=== PATIENT | female | born 1965 | race Caucasian/White ===

== ENCOUNTER 2019-11-26 18:55 | Emergency (ER) | payer MEDICARE, MEDICAID, SELFPAY ==
[2019-11-26 19:01] VITALS: BP 110/62; PULSE 77; RESP 20; TEMP 36.6; O2SAT 99
--- NOTE | 2019-11-26 19:19 | ED.URI ---
HPI - URI/Sore Throat General Chief Complaint: Upper Respiratory Infection Stated Complaint: cough/cold Time Seen by Provider: 11/26/19 19:15 Source: patient and RN notes reviewed Mode of arrival: ambulatory Limitations: no limitations History of Present Illness HPI Narrative: Patient presents today with a 4-day history of sore throat, nasal congestion, postnasal drip, bilateral ear pain, frontal headache, hoarseness. Symptoms have been worsening since onset. Denies cough. She has been taking Tylenol Cold with mild relief. MD elicited complaint: sore throat and nasal congestion Related Data Home Medications Medication Instructions Recorded Confirmed clonazepam [Klonopin] 0.5 mg PO TID 11/26/19 11/26/19 clonazepam [Klonopin] 1 mg PO DAILY 11/26/19 11/26/19 lamotrigine [Lamictal] 100 mg PO DAILY 11/26/19 11/26/19 lamotrigine [Lamictal] 200 mg PO HS 11/26/19 11/26/19 venlafaxine [Effexor XR] 300 mg PO DAILY 11/26/19 11/26/19 Allergies Allergy/AdvReac Type Severity Reaction Status Date / Time Sulfa (Sulfonamide Allergy Mild Hives Verified 11/26/19 19:09 Antibiotics) paroxetine [From Paxil] Allergy Diarrhea Verified 11/26/19 19:09 ziprasidone [From Geodon] Allergy Hypertensio Verified 11/26/19 19:10 n Review of Systems Review of Systems: Narrative: CONSTITUTIONAL: Denies body aches, fever, chills, or sweats. EYES: Denies visual changes, redness, or discharge. ENT: + Rhinorrhea, congestion, sore throat, bilateral ear pain, hoarseness, postnasal drip CARDIOVASCULAR: Denies chest pain, palpitations, or edema. RESPIRATORY: Denies cough or dyspnea. GASTROINTESTINAL: Denies abdominal pain, nausea, vomiting, or diarrhea. GENITOURINARY: Denies dysuria or hematuria. SKIN: Denies rash, itching, or wounds. MUSCULOSKELETAL: Denies back pain, joint pain, or myalgia. NEUROLOGIC: Denies numbness, tingling, or weakness.+ Headache PSYCH: Denies depression or anxiety. PMFSH Comments At time of signature, I have reviewed and agree with nursing past medical, surgical, social and family history unless otherwise noted. Please see nursing chart for further information. There is no relevant family history pertinent to the presenting complaint Exam Narrative: Exam Narrative: GENERAL: Mildly ill-appearing, well-nourished, and in no acute distress. HEAD: Normocephalic, atraumatic. EYES: EOMI. No redness or drainage. Conjunctivae normal. ENT: Mucous membranes pink and moist. Nares clear. No rhinorrhea. TMs normal bilaterally. Throat mildly erythematous without edema or exudate. Uvula midline. Voice is hoarse NECK: Normal AROM. Supple. Left anterior cervical chain lymphadenopathy. CHEST: No respiratory distress. Clear to auscultation. HEART: Regular rate and rhythm. No murmur appreciated. Normal peripheral pulses. EXTREMITIES: Normal range of motion. No edema. SKIN: Warm, dry, no rash. NEURO: No focal deficits. Alert and oriented x3. Gait steady. PSYCH: Normal affect. No signs of depression or anxiety. Course Vital Signs Vital signs: Vital Signs Temperature 97.8 F 11/26/19 19:01 Pulse Rate 77 11/26/19 19:01 Respiratory Rate 20 11/26/19 19:01 Blood Pressure 110/62 11/26/19 19:01 Pulse Oximetry 99 11/26/19 19:01 Temperature 97.8 F 11/26/19 19:01 Pulse Rate 77 11/26/19 19:01 Respiratory Rate 20 11/26/19 19:01 Blood Pressure 110/62 11/26/19 19:01 Pulse Oximetry 99 11/26/19 19:01 Reviewed MDM - URI/Sore Throat Differential Diagnosis Differential diagnosis: Likely upper respiratory infection, otitis media, sinusitis, viral infection, pharyngitis and other (Strep throat) Lab Data Attestation: I reviewed the patient's lab results. Lab results narrative: Rapid strep negative Labs: Strep Screen Presumptive Negative *(Reference Range: Negative)* Critical Care Time Critical Care Time Critical Care Time: No Discharge Plan Discharge Clinical Impressi
== END 2019-11-26 19:26 | disposition home or self-care (01) ==
PROVIDERS: Emergency Provider Nurse Practitioner
DX: J06.9 Acute upper respiratory infection, unspecified (principal); F41.9 Anxiety disorder, unspecified
CPT/HCPCS: 87081; 87880; 99213; G0463

== ENCOUNTER 2020-05-14 14:27 | Outpatient (CLI) | payer MEDICARE, MEDICAID, SELFPAY ==
--- NOTE | ~2020-05-14 | CT_ITS ---
EXAMINATION: CT chest w con DATE: 05/14/2020 15:35 INDICATION: Abnormal finding on recent x-ray. Evaluate for pulmonary mass. TECHNIQUE: Computed tomography (CT) of the chest was performed with 75 cc Omnipaque 350 intravenous c ontrast. The dose-length product was 164.32 mGy-cm. Automated exposure control and iterative reconstr uction technique were employed. COMPARISON: Chest x-ray dated 03/15/2006 and left rib series dated 01/28/2009 FINDINGS: Heart size normal. No thoracic lymphadenopathy. No significant pleural or pericardial effus ion. Thyroid gland is unremarkable. No significant vascular abnormality. No evidence for aneurysm or dissection. Gallbladder is distended, nonspecific. There is dependent atelectasis. No pneumothorax. N o endobronchial lesions. No focal parenchymal airspace consolidation. Mild dextrocurvature of the tho racic spine. No suspicious pulmonary nodules or masses. No acute bone or joint abnormality. Spinal watson rdware partially visualized lower cervical spine. There is a bone island of T9. IMPRESSION: 1. Unremarkable CT chest. Reviewed, dictated and finalized at location A. IMPRESSION: 1. Unremarkable CT chest.
== END 2020-05-14 14:28 | disposition home or self-care (01) ==
LOC: ANHIMG 14:30
PROVIDERS: PCP Family Medicine; Visit Provider Family Medicine
DX: R93.89 Abnormal findings on diagnostic imaging of other specified body structures (principal)
CPT/HCPCS: 71260; Q9967

== ENCOUNTER → 2020-06-01 12:54 | Outpatient (CLI) | payer MEDICARE, MEDICAID, SELFPAY ==
--- NOTE | ~2020-06-01 | CT_ITS ---
EXAMINATION: CT sinus wo con DATE: 06/01/2020 13:15 INDICATION: Chronic sinusitis TECHNIQUE: Computed tomography (CT) of the paranasal sinuses was performed without intravenous contra st. The dose-length product was 308.32 mGy-cm. Iterative reconstruction technique was employed. COMPARISON: CT dated 03/22/2008 FINDINGS: There is mucosal thickening of the maxillary sinuses. No significant mucoperiosteal reactio n. No air-fluid levels. There is a left-sided brine bullosa. Rightward nasal septal deviation. Ostio meatal units are patent. Mastoids are pneumatized. IMPRESSION: 1. Mild maxillary sinusitis. Reviewed, dictated and finalized at location B.
== END ==
PROVIDERS: PCP Family Medicine; Visit Provider Otolaryngology
DX: J32.0 Chronic maxillary sinusitis (principal)
CPT/HCPCS: 70486

== ENCOUNTER 2021-01-21 14:29 | Emergency (ER) | payer MEDICARE, MEDICAID, SELFPAY ==
[2021-01-21 14:38] VITALS: BP 104/71; PULSE 102; RESP 12; TEMP 37.1; O2SAT 99
--- NOTE | 2021-01-21 15:13 | ED.PEDHENT ---
HPI - Pediatric HENT General Chief complaint: Ear Stated complaint: THROAT PAIN, EAR PAIN Source: patient and RN notes reviewed Limitations: no limitations History of Present Illness HPI Narrative: The patient, who has a history of anxiety on several psychiatric meds, presents with sore throat. Patient states she had the quick onset while eating overcooked, scaly fish of sore throat last night. She thought she might have a foreign body or small bone, but symptoms improved this morning. She reports she looked at the back of her throat and thought she saw uvular edema and/or [bloody?] redness. Symptoms are mild to have improved, radiate to her ears. No fever, hoarseness, trismus, FB sensation now; she specifically & repeatedly declines imaging. Related Data Home Medications Medication Instructions Recorded Confirmed clonazepam [Klonopin] 0.5 mg PO TID 11/26/19 01/21/21 clonazepam [Klonopin] 1 mg PO DAILY 11/26/19 01/21/21 lamotrigine [Lamictal] 100 mg PO DAILY 11/26/19 01/21/21 lamotrigine [Lamictal] 200 mg PO HS 11/26/19 01/21/21 venlafaxine [Effexor XR] 300 mg PO DAILY 11/26/19 01/21/21 Allergies Allergy/AdvReac Type Severity Reaction Status Date / Time Sulfa (Sulfonamide Allergy Mild Hives Verified 01/21/21 14:38 Antibiotics) paroxetine [From Paxil] Allergy Diarrhea Verified 01/21/21 14:38 ziprasidone [From Geodon] Allergy Hypertensio Verified 01/21/21 14:38 n Pediatric Review of Systems Review of Systems: General/Constitutional: No weight loss,fever Eyes: N0: Redness,discharge Ears/Nose/Throat: No: Epistaxis,ear discharge Respiratory: Denies: Hemoptysis Gastrointestinal: No Vomiting, Bleeding-rectal Skin: No Lumps, eruption Neurologic: No Focal Weakness,Sz Hematologic: Denies: Petechiae/Purpura Psychiatric: No: Suicida ideationl All Other Systems: Reviewed and Negative PMFSH Comments At time of signature, agree with nursing past medical, surgical, social and family history. There is no relevant family history pertinent to the presenting complaint Pediatric Exam Narrative: Physical exam: General Appearance: Well appearing, Well nourished EYE: PERRLA, Conjunctiva clear Ears: Auditory canal normal, TM normal Nose: no rhinorrhea, nor mucousal erythema Mouth/Throat: MM moist, Uvula midline, Pharyngeal erythema Neck: Supple, No adenopathy Respiratory: No respiratory distress, Breath sounds equal, Clear to auscultation Musculoskeletal: Non tender, Normal strength Skin: Warm, Dry Neurological: A&O x3, CN II-XII intact Psy : nl mood Course Vital Signs Vital signs: Vital Signs Temperature 98.7 F 01/21/21 14:38 Pulse Rate 102 H 01/21/21 14:38 Respiratory Rate 12 01/21/21 14:38 Blood Pressure 104/71 01/21/21 14:38 Pulse Oximetry 99 01/21/21 14:38 Temperature 98.7 F 01/21/21 14:38 Pulse Rate 102 H 01/21/21 14:38 Respiratory Rate 12 01/21/21 14:38 Blood Pressure 104/71 01/21/21 14:38 Pulse Oximetry 99 01/21/21 14:38 Medical Decision Making Vital Signs Vital Signs: Vital Signs Temperature 98.7 F 01/21/21 14:38 Pulse Rate 102 H 01/21/21 14:38 Respiratory Rate 12 01/21/21 14:38 Blood Pressure 104/71 01/21/21 14:38 Pulse Oximetry 99 01/21/21 14:38 Temperature 98.7 F 01/21/21 14:38 Pulse Rate 102 H 01/21/21 14:38 Respiratory Rate 12 01/21/21 14:38 Blood Pressure 104/71 01/21/21 14:38 Pulse Oximetry 99 01/21/21 14:38 Lab Data Labs: Strep Screen Presumptive Negative *(Reference Range: Negative)* Discharge Plan Discharge Clinical Impression: Odynophagia, Globus sensation Patient Disposition: Home, Self-Care Condition: Stable Instructions: Esophageal Foreign Body (ED) Additional Instructions: Return if worsens Prescriptions: New azithromycin 250 mg tablet See Rx Instructions .ROUTE .COMPLEX Qty: 6 RF: 0 lidocaine HCl
== END 2021-01-21 15:18 | disposition home or self-care (01) ==
PROVIDERS: Emergency Provider Emergency Medicine; PCP Family Medicine
DX: F45.8 Other somatoform disorders (principal); F41.9 Anxiety disorder, unspecified
CPT/HCPCS: 87081; 87880; 99213; G0463

== ENCOUNTER 2023-03-27 18:54 | Emergency (ER) | payer MEDICARE, MEDICAID, SELFPAY ==
[2023-03-27] VITALS (20 sets, daily range): BP systolic 105–121; BP diastolic 63–82; PULSE 67–106; RESP 9–23; TEMP 36.6; O2SAT 97–100
--- NOTE | ~2023-03-27 | XR_ITS ---
EXAMINATION: XR chest 1V portable DATE: 03/27/2023 20:43 INDICATION: Near syncope. Anxiety. TECHNIQUE: A single frontal view of the chest was obtained. COMPARISON: Chest single view 01/28/2009 FINDINGS: The chest demonstrates clear lungs without pneumonia, pleural effusion, or pneumothorax. Th e heart size is normal. There are changes of anterior fusion procedure in cervical spine. IMPRESSION: 1. No acute cardiopulmonary disease. Reviewed, dictated and finalized at location E.
--- NOTE | 2023-03-27 19:07 | ECG_ITS ---
Measurements Intervals Viola Rate: 91 P: 26 ID: 150 QRS: -4 QRSD: 91 T: 42 QT: 364 QTc: 449 Interpretive Statements SINUS RHYTHM DELAYED PRECORDIAL R/S TRANSITION BORDERLINE T WAVE ABNORMALITY- ANTERIOR LEADS BORDERLINE ECG NO PREVIOUS ECG AVAILABLE FOR COMPARISON Electronically Signed On 03-27-2023 21:10:31 CDT by Raj Mitchell D.O.
[2023-03-27 19:18] LABS: Basophils Absolute Auto 0.1 K/mm3 (0.0-0.1); Basophils Percent Auto 1.3 % (0.2-1.2); Eosinophils Absolute Auto 0.4 K/mm3 (0-0.3); Eosinophils Percent Auto 7.6 % (0-4.4); Hematocrit 42.6 % (37.0-47.0); Immature Granulocyte Absolute 0.01 K/mm3 (0.00-0.031); Immature Granulocyte Percent A 0.2 % (0-0.5); Lymphocytes Absolute Auto 1.35 K/mm3 (0.9-3.2); Lymphocytes Percent Auto 24.3 % (18.3-44.2); Mean Corpuscular HGB Conc 32.9 g/dl (32-36); Mean Corpuscular Hemoglobin 29.8 pg (26-34); Mean Corpuscular Volume 90.6 fl (80-100); Mean Platelet Volume 9.5 fl (7.4-10.4); Monocytes Absolute Auto 0.4 K/mm3 (0.1-0.6); Neutrophils Absolute Auto 3.3 K/mm3 (1.3-6.7); Neutrophils Percent Auto 59.6 % (45.5-73.1); Platelet Count Result 284 k/mm3 (150-375); Red Cell Distribution Width 12.8 % (11.5-14.5); White Blood Count 5.6 K/mm3 (4.5-10.0)
[2023-03-27 20:03] LABS: Alanine Aminotransferase 28 U/L (6-35); Albumin Level 4.4 g/dL (3.5-5.1); Alkaline Phosphatase 87 U/L (38-126); Anion Gap 4 mmol/L (8-16); Aspartate Amino Transferase 28 U/L (14-36); Bilirubin,Total 0.4 mg/dL (0.2-1.3); Blood Urea Nitrogen 14 mg/dL (7-17); Calcium 9.4 mg/dL (8.4-10.2); Carbon Dioxide 29 mmol/L (22-30); Chloride 103 mmol/L (98-107); Estimated Glomerular Filt Rate > 60; Glucose 92 mg/dL (65-110); Sodium 136 mmol/L (137-145)
--- NOTE | 2023-03-27 20:18 | ED.ANXIETY ---
HPI - Anxiety General Chief Complaint: Anxiety Stated Complaint: anxiety induced syncope Time Seen by Provider: 03/27/23 19:04 History of Present Illness HPI narrative: Patient is a 57-year-old female with a history of panic disorder, anxiety, depression presenting with a panic attack. Patient states that she has been seeing a new psychiatrist who has been tinkering with her psychiatric medications. She is concerned that they are decreasing all of her medications. States that she has had worsening anxiety and more frequent panic attacks. States that today around 5 PM she began having a panic attack. States that she feels tingly all over. States that she took a Klonopin which only helped a little bit. She denies fevers or chills, chest pain, shortness of breath, abdominal pain, leg swelling, vomiting, diarrhea, dysuria. Related Data Home Medications Medication Instructions Recorded Confirmed clonazepam 0.5 mg tablet (Klonopin) 0.5 mg PO TID 11/26/19 01/21/21 clonazepam 1 mg tablet (Klonopin) 1 mg PO DAILY 11/26/19 01/21/21 lamotrigine 100 mg tablet 100 mg PO DAILY 11/26/19 01/21/21 (Lamictal) lamotrigine 200 mg tablet 200 mg PO HS 11/26/19 01/21/21 (Lamictal) venlafaxine 150 mg 300 mg PO DAILY 11/26/19 01/21/21 capsule,extended release 24 hr (Effexor XR) Allergies Allergy/AdvReac Type Severity Reaction Status Date / Time Sulfa (Sulfonamide Allergy Mild Hives Verified 01/21/21 14:38 Antibiotics) paroxetine [From Paxil] Allergy Diarrhea Verified 01/21/21 14:38 ziprasidone [From Geodon] Allergy Hypertensio Verified 01/21/21 14:38 n Review of Systems Review of Systems: All systems reviewed & are unremarkable except as noted in HPI and below Exam Narrative: GENERAL: Well-appearing, well-nourished, and in no acute distress. HEAD: Normocephalic, atraumatic. EYES: PERRLA and EOMI. ENT: Nares clear, no rhinorrhea or epistaxis. Mucous membranes moist. NECK: Supple. CHEST: Clear to auscultation. No respiratory distress. HEART: Regular rate and rhythm. No murmur heard. Normal peripheral pulses. ABDOMEN: Soft, nontender, nondistended EXTREMITIES: Normal range of motion. No edema. SKIN: Warm, dry, no rash. NEURO: No focal deficits. Alert and oriented x3. PSYCH: Anxious Course Vital Signs Vital signs: Vital Signs Temperature 97.9 F 03/27/23 18:55 Pulse Rate 106 H 03/27/23 18:55 Respiratory Rate 13 03/27/23 18:55 Blood Pressure 121/82 03/27/23 18:55 Pulse Oximetry 100 03/27/23 18:55 Oxygen Delivery Room Air 03/27/23 18:55 Temperature 97.9 F 03/27/23 18:55 Pulse Rate 71 03/27/23 21:31 Respiratory Rate 16 03/27/23 21:31 Blood Pressure 107/68 03/27/23 21:31 Pulse Oximetry 100 03/27/23 21:31 Oxygen Delivery Room Air 03/27/23 18:55 MDM - Anxiety MDM Narrative Medical decision making narrative: Patient is a 57-year-old female presenting with a panic attack. Vitals are reassuring. She was initially fully slightly tachycardic but this resolved for the time I evaluated her. Plan for blood work, fluids, one-time dose of Ativan. Anticipate likely discharge. EKG per my interpretation shows normal sinus rhythm, normal intervals, no acute ischemic changes. Blood work is normal. Troponin undetectable. On reevaluation, the patient states that she feels significantly improved following the Ativan and fluids. She feels comfortable going home which I think is appropriate. Advised close f/u with PCP and her psychiatrist. Appropriate return precautions given. Voiced understanding and agreeable with plan. Discharged in stable condition. Differential Diagnosis Differential diagnosis: Likely hyperventilation, panic disorder and acute anxiety Medical Records Attestation: I reviewed the patient's medical records. Lab Data Attestation: I reviewed the patient's lab results. 03/27/23 19:09 03/27/23 19:46 Labs: Lab Results 03/18
[2023-03-27] MEDS: LORazepam INJ (*CRX) 2 MG/ML VIAL 1 MG IV PUSH (20:24)
[2023-03-27] MEDS: SODIUM CHLORIDE 0.9% IV 1,000 ML 999 ML IV CONT (20:25)
[2023-03-27 20:56] LABS: Troponin I < 0.012 ng/mL (0.000-0.034)
[2023-03-27] MEDS: ACETAMINOPHEN 500 MG TABLET 1000 MG PO (21:55)
== END 2023-03-27 22:05 | disposition home or self-care (01) ==
PROVIDERS: Emergency Provider Emergency Medicine; PCP Family Medicine
DX: F41.0 Panic disorder [episodic paroxysmal anxiety] (principal); R94.31 Abnormal electrocardiogram [ECG] [EKG]
CPT/HCPCS: 36415; 71045; 80053; 81025; 84484; 85025; 93005; 96361; 96374; 99284; A9270; J2060; J7030

== ENCOUNTER 2023-10-17 16:32 | Emergency (ER) | payer MEDICARE, MEDICAID, SELFPAY ==
[2023-10-17 16:42] VITALS: BP 123/79; PULSE 80; RESP 16; TEMP 36.8; O2SAT 98
[2023-10-17] MEDS: LORazepam INJ (*CRX) 2 MG/ML VIAL IM (17:00)
[2023-10-17 17:01] VITALS: BP 123/79; PULSE 91; RESP 16; O2SAT 100
[2023-10-17 17:12] LABS: Basophils Percent Auto 0.7 % (0.2-1.2); Eosinophils Absolute Auto 0.4 K/mm3 (0-0.3); Eosinophils Percent Auto 6.9 % (0-4.4); Hematocrit 46.1 % (37.0-47.0); Immature Granulocyte Absolute 0.01 K/mm3 (0.00-0.031); Immature Granulocyte Percent A 0.2 % (0-0.5); Lymphocytes Absolute Auto 1.26 K/mm3 (0.9-3.2); Lymphocytes Percent Auto 21.8 % (18.3-44.2); Mean Corpuscular HGB Conc 32.5 g/dl (32-36); Mean Corpuscular Hemoglobin 29.3 pg (26-34); Monocytes Absolute Auto 0.3 K/mm3 (0.1-0.6); Monocytes Percent Auto 5.5 % (2.6-8.5); Neutrophils Absolute Auto 3.8 K/mm3 (1.3-6.7); Neutrophils Percent Auto 64.9 % (45.5-73.1); Platelet Count Result 298 k/mm3 (150-375); Red Blood Count 5.12 M/mm3 (4.2-5.4); Red Cell Distribution Width 12.2 % (11.5-14.5); White Blood Count 5.8 K/mm3 (4.5-10.0)
--- NOTE | 2023-10-17 17:15 | PC.NURSE ---
Tech informed pt of need in [facility]. Pt asked for more time to relax
[2023-10-17 17:27] LABS: Alanine Aminotransferase 16 U/L (6-35); Albumin Level 4.8 g/dL (3.5-5.1); Alkaline Phosphatase 91 U/L (38-126); Anion Gap 8 mmol/L (8-16); Aspartate Amino Transferase 23 U/L (14-36); Bilirubin,Total 0.4 mg/dL (0.2-1.3); Blood Urea Nitrogen 16 mg/dL (7-17); Calcium 9.9 mg/dL (8.4-10.2); Carbon Dioxide 28 mmol/L (22-30); Chloride 102 mmol/L (98-107); Estimated Glomerular Filt Rate > 60; Glucose 94 mg/dL (65-110); Magnesium 2.2 mg/dL (1.6-2.3); Sodium 138 mmol/L (137-145)
[2023-10-17 17:28] LABS: Acetaminophen < 10 ug/mL (10-30); Ethanol < 10 mg/dL (<10); Salicylate < 1.0 mg/dL (2-20)
[2023-10-17 17:48] LABS: Influenza A QL RT-PCR Negative (Negative); Influenza B QL RT-PCR Negative (Negative); RSV RNA, RT-PCR Negative (Negative); SARS-CoV-2 RNA PCR Negative (Negative)
[2023-10-17] MEDS: clonazePAM (*CRX) 0.5 MG TABLET 1 MG PO (18:11)
[2023-10-17 18:12] VITALS: BP 99/61; PULSE 84; RESP 14; O2SAT 100
--- NOTE | 2023-10-17 18:23 | ED.ANXIETY ---
HPI - Anxiety General Chief Complaint: Anxiety Stated Complaint: Anxiety Time Seen by Provider: 10/17/23 16:59 History of Present Illness HPI narrative: 58-year-old female presenting ED for evaluation for Klonopin withdrawal. Patient states that her psychiatrist has been decreasing her Klonopin. Patient states that she ran out of her Klonopin on Monday and has had worsening anxiety and agitation. Patient states that she did feel confused as well. Patient attempted to have a phone evaluation with her psychiatrist today but was unable to do so. Patient presented to the emergency department complaining of increased anxiety. Patient denies any homicidal or suicidal ideation. Patient does not have a refill on her Klonopin until October 21 Related Data Home Medications Medication Instructions Recorded Confirmed clonazepam 0.5 mg tablet (Klonopin) 0.5 mg PO TID 11/26/19 01/21/21 clonazepam 1 mg tablet (Klonopin) 1 mg PO DAILY 11/26/19 01/21/21 lamotrigine 100 mg tablet 100 mg PO DAILY 11/26/19 01/21/21 (Lamictal) lamotrigine 200 mg tablet 200 mg PO HS 11/26/19 01/21/21 (Lamictal) venlafaxine 150 mg 300 mg PO DAILY 11/26/19 01/21/21 capsule,extended release 24 hr (Effexor XR) Allergies Allergy/AdvReac Type Severity Reaction Status Date / Time Sulfa (Sulfonamide Allergy Mild Hives Verified 10/17/23 18:13 Antibiotics) paroxetine [From Paxil] Allergy Diarrhea Verified 10/17/23 18:13 ziprasidone [From Geodon] Allergy Hypertensio Verified 10/17/23 18:13 n Review of Systems Review of Systems: All systems reviewed & are unremarkable except as noted in HPI and below PMFSH Social History Social History Substance use type: prescription drug Exam Narrative: APPEARANCE: Well appearing, no pain, no distress, well-nourished. HEAD: normocephalic, atraumatic. EYES: PERRLA/EOMI, conjunctivae clear. NOSE: Normal no drainage EARS:TMS clear with good light reflex. THROAT: Pharynx clear, no exudate. NECK: Supple. No adenopathy, no masses. RESPIRATORY: Airway patent, respirations nonlabored. Clear to auscultation bilaterally, no rales, rhonchi, wheezing. CARDIOVASCULAR: Regular rate and rhythm without murmurs rubs or gallops. ABDOMINAL: Soft, nontender, nondistended, normal bowel sounds MUSCULOSKELETAL: Moves all extremities. Strength/ROM intact, No edema, No calf tenderness. NEURO: Alert. Cranial nerves II through XII intact. Grossly intact SKIN: Warm, dry. Normal Color PSYCHIATRIC: Anxious affect Course Course Emergency Course: 58-year-old female presenting the ED for evaluation for Klonopin withdrawal. Patient does have a Klonopin prescription early October. After treating her with benzos in the emergency department patient is alert oriented and prefers to be discharged home. Patient is not confused, patient is not hallucinating and patient continues to deny any suicidal homicidal ideation. Patient was given a prescription 10 x 0.5 mg Klonopin. Patient does have a psychiatrist that she will be following up with. Vital Signs Vital signs: Vital Signs Temperature 98.2 F 10/17/23 16:42 Pulse Rate 80 10/17/23 16:42 Respiratory Rate 16 10/17/23 16:42 Blood Pressure 123/79 10/17/23 16:42 Pulse Oximetry 98 10/17/23 16:42 Temperature 97.7 F 10/17/23 19:20 Pulse Rate 81 10/17/23 19:20 Respiratory Rate 18 10/17/23 19:20 Blood Pressure 105/84 10/17/23 19:20 Pulse Oximetry 100 10/17/23 19:20 MDM - Anxiety Lab Data 10/17/23 17:05 10/17/23 17:05 Labs: Lab Results 10/17/23 10/17/23 10/17/23 Range/Units 17:05 17:05 17:05 WBC 5.8 (4.5-10.0) K/mm3 RBC 5.12 (4.2-5.4) M/mm3 Hgb 15.0 (12.0-15.0) g/dL Hct 46.1 (37.0-47.0) % MCV 90.0 (80-100) fl MCH 29.3 (26-34) pg MCHC 32.5 (32-36) g/dl RDW 12.2 (11.5-14.5) % Plt Count 298
[2023-10-17 18:52] LABS: Appearance Urine Clear (Clear); Bacteria Urine Rare /hpf; Bilirubin Urine Negative (Negative); Blood Urine Negative (Negative); Color Urine Yellow (Yellow); Glucose Urine UA Negative (Negative); Ketones Urine Negative (Negative); Leukocyte Esterase Ur 1+ LEU/UL (Negative); Nitrate Urine Negative (Negative); Non Pathogenic Casts 0-2; Protein Urine Negative (Negative); RBC Urine 0-2 /hpf (0-2); Specific Grav Ur 1.015 (1.001-1.035); Squamous Epithelial Cell Urine Few /hpf (Few); Urobilinogen Urine 0.2 mg/dL (<2.0)
[2023-10-17 18:54] LABS: Add Urine Microscopic? YES
[2023-10-17 19:14] LABS: Amphetamine Screen Urine Negative (Negative); Barbiturate Screen Urine Negative (Negative); Benzodiazepines Screen Urine Negative (Negative); Cannabinoid Screen Urine Negative (Negative); Cocaine Screen Urine Negative (Negative); Methadone Screen Urine Negative (Negative); Opiate Screen Urine Negative (Negative); Phencyclidine Screen Urine Negative (Negative)
[2023-10-17 19:20] VITALS: BP 105/84; PULSE 81; RESP 18; TEMP 36.5; O2SAT 100
--- NOTE | 2023-10-17 19:21 | PC.NURSE ---
This RN called pt son at 1914 to update and make aware pt is being DC. pt son verbalized he is coming to pick patient up
== END 2023-10-17 19:22 | disposition home or self-care (01) ==
LOC: ANHED 18:38
PROVIDERS: Emergency Provider Emergency Medicine; PCP Nurse Practitioner Adult Health
DX: F13.139 Sedative, hypnotic or anxiolytic abuse with withdrawal, unspecified (principal); Z20.822 Contact with and (suspected) exposure to COVID-19; R82.998 Other abnormal findings in urine; Z79.899 Other long term (current) drug therapy
CPT/HCPCS: 36415; 80053; 80307; 81001; 81025; 83735; 84443; 85025; 87086; 87637; 96372; 99283; A9270; J2060

== ENCOUNTER 2023-11-23 15:44 | Outpatient (CLI) | payer MEDICARE, MEDICAID, SELFPAY ==
--- NOTE | ~2023-11-23 | XR_ITS ---
EXAMINATION: XR sinus min 3V DATE: 11/23/2023 16:06 INDICATION: Other specified disorders of nose and nasal sinuses. TECHNIQUE: 5 views of the paranasal sinuses were obtained. COMPARISON: CT sinuses 06/01/2020 FINDINGS: Bone alignment is normal. There is mild mucosal thickening in the maxillary sinuses. There is thickening and sclerosis of the christian of the maxillary sinuses, consistent with chronic sinusitis. IMPRESSION: 1. Chronic sinusitis. Reviewed, dictated and finalized at location E. BER CUB IMPRESSION: 1. Chronic sinusitis.
[2023-11-23 19:29] LABS: Alanine Aminotransferase 24 U/L (6-35); Albumin Level 4.8 g/dL (3.5-5.1); Alkaline Phosphatase 90 U/L (38-126); Anion Gap 8 mmol/L (8-16); Aspartate Amino Transferase 36 U/L (14-36); Bilirubin,Total 0.4 mg/dL (0.2-1.3); Blood Urea Nitrogen 14 mg/dL (7-17); Calcium 10.2 mg/dL (8.4-10.2); Carbon Dioxide 29 mmol/L (22-30); Chloride 101 mmol/L (98-107); Estimated Glomerular Filt Rate > 60; Glucose 94 mg/dL (65-110); Potassium 4.1 mmol/L (3.4-5.0); Sodium 138 mmol/L (137-145)
[2023-11-23 19:39] LABS: Hematocrit 46.1 % (37.0-47.0); Hemoglobin 14.7 g/dL (12.0-15.0); Mean Corpuscular HGB Conc 31.9 g/dl (32-36); Mean Corpuscular Hemoglobin 29.2 pg (26-34); Mean Corpuscular Volume 91.7 fl (80-100); Mean Platelet Volume 9.3 fl (7.4-10.4); Platelet Count Result 371 k/mm3 (150-375); Red Blood Count 5.03 M/mm3 (4.2-5.4); Red Cell Distribution Width 12.6 % (11.5-14.5)
[2023-11-23 20:46] LABS: Folic Acid 5.5 ng/mL (2.76->20)
== END 2023-11-23 15:45 | disposition home or self-care (01) ==
PROVIDERS: PCP Nurse Practitioner Adult Health; Visit Provider Nurse Practitioner Adult Health
DX: F39 Unspecified mood [affective] disorder (principal); F41.9 Anxiety disorder, unspecified; F33.9 Major depressive disorder, recurrent, unspecified; J34.89 Other specified disorders of nose and nasal sinuses; J32.9 Chronic sinusitis, unspecified
CPT/HCPCS: 36415; 70220; 80053; 82607; 82746; 84443; 85027

== ENCOUNTER 2024-04-09 15:08 | Outpatient (CLI) | payer MEDICARE, MEDICAID, SELFPAY ==
[2024-04-09 18:40] LABS: Basophils Absolute Auto 0.1 K/mm3 (0.0-0.1); Basophils Percent Auto 1.3 % (0.2-1.2); Eosinophils Absolute Auto 0.3 K/mm3 (0-0.3); Eosinophils Percent Auto 6.9 % (0-4.4); Hematocrit 46.2 % (37.0-47.0); Hemoglobin 14.8 g/dL (12.0-15.0); Immature Granulocyte Absolute 0.02 K/mm3 (0.00-0.031); Immature Granulocyte Percent A 0.4 % (0-0.5); Lymphocytes Absolute Auto 1.31 K/mm3 (0.9-3.2); Lymphocytes Percent Auto 28.1 % (18.3-44.2); Mean Corpuscular Hemoglobin 28.5 pg (26-34); Mean Platelet Volume 9.2 fl (7.4-10.4); Monocytes Absolute Auto 0.3 K/mm3 (0.1-0.6); Monocytes Percent Auto 6.9 % (2.6-8.5); Neutrophils Absolute Auto 2.6 K/mm3 (1.3-6.7); Neutrophils Percent Auto 56.4 % (45.5-73.1); Platelet Count Result 312 k/mm3 (150-375); Red Blood Count 5.19 M/mm3 (4.2-5.4); Red Cell Distribution Width 12.6 % (11.5-14.5); White Blood Count 4.7 K/mm3 (4.5-10.0)
[2024-04-09 19:21] LABS: Free T4 Free Thyroxine 0.95 ng/mL (0.78-2.19)
[2024-04-10 16:13] LABS: Progesterone <0.5 ng/mL
[2024-04-12 09:33] LABS: Thyroid Peroxidase Antibodies <1 IU/mL (<9)
[2024-04-13 15:53] LABS: Estrogen 36 pg/mL
[2024-04-13 22:13] LABS: Estradiol, Ultrasensitive 3 pg/mL
[2024-04-16 15:39] LABS: FSH 62.8 mIU/mL
== END 2024-04-09 15:09 | disposition home or self-care (01) ==
LOC: ANHBWCLAB 15:10
PROVIDERS: PCP Nurse Practitioner Adult Health; Visit Provider Nurse Practitioner Adult Health
DX: F39 Unspecified mood [affective] disorder (principal)
CPT/HCPCS: 36415; 82670; 82672; 83001; 83002; 84144; 84439; 84443; 85025; 86376

== ENCOUNTER 2025-01-01 14:14 | Outpatient (CLI) | payer MEDICARE, MEDICAID, SELFPAY ==
--- OUTSIDE RECORDS SUMMARY | 2025-01-01 15:29 | XMS_ITS | Clinical Summary ---
Author Organization [facility] Address [address] [place] [phone] Phone Care Team Providers Care Barrer And Tacker Name Role Phone Unavailable Primary Care Provider Unavailabl e Social History Tobacco Use Types Packs/Day Years Used Date Smoking Tobacco: Never Assessed Sex and Gender Information Value Date Recorded Sex Assigned at Not on file Legal Sex Male 11:28 AM CDT Gender Identity Not on file Sexual Orientation Not on file Plan of Treatment Health Maintenance Due Date Last Done Comments DTAP/TDAP/TD VACCINES (1 - Tdap) 1986 HEPATITIS B VACCINES (1 of 3 - 19+ 3-dose series) 1986 COLORECTAL SCREENING 2012 Colorectal Cancer Screening 2012 FIT-DNA Q 3 years 2012 FIT/FOBT Q 1 year 2012 Flex Sig/CT Colonography Q 5 years 2012 ZOSTER VACCINE (1 of 2) 2017 INFLUENZA VACCINE (#1) 2024 PNEUMOCOCCAL VACCINE 0-49 YEARS Aged Out No longer eligible based on patient's age to complete this topic Insurance MEDICARE PART A AND B
--- OUTSIDE RECORDS SUMMARY | 2025-01-01 15:29 | XMS_ITS | Clinical Summary ---
Author Organization [facility] Address [facility] [place] [address] Care Team Providers Care Print Inspector Name Role Phone Unavailable Primary Care Provider Unavailabl e Social History Tobacco Use Types Packs/Day Years Used Date Smoking Tobacco: Never Assessed Comments Unknown Sex and Gender Information Value Date Recorded Sex Assigned at Not on file Legal Sex Female 7:36 PM CDT Gender Identity Not on file Sexual Orientation Not on file Plan of Treatment Health Maintenance Due Date Last Done Comments Cervical Cancer Screening Pa p Smear (Age 30 to 64) Every 3 Years 1967 Colorectal Cancer Screening Colonoscopy (10 Years) 1967 Annual Physical 1970 Hepatitis C 1985 DTaP, Tdap and Td Vaccines ( 1 - Tdap) 1986 Hepatitis B Vaccines (1 of 3 - 19+ 3-dose series) 1986 Cervical Cancer Screening Pa p with HPV Testing (Age 30 to 64) Every 5 Years 1997 Cervical Cancer Screening with HPV 1997 Mammogram Screening 2007 Zoster Vaccines (1 of 2) 2017 COVID-19 Vaccine (2023-2 5 season) 2024 Meningococcal B Vaccine Aged Out No l onger eligible based on patient's age to complete this topic Meningococcal Vaccine Aged Out No brown alexys eligible based on patient's age to complete this topic Pneumococcal Vaccine: Pediat rics (0 to 5 Years) and At-Risk Patients (6 to 49 Years) Aged Out No longer eligible b ased on patient's age to complete this topic RSV Immunizations Under 20 Months Aged Out No longer eligible based on patient's age to complete this topic
--- OUTSIDE RECORDS SUMMARY | 2025-01-01 15:29 | XMS_ITS | Clinical Summary ---
Author Organization [facility] [employer] Address [address] [place] [address] Care Team Providers Care Cloth Bin Packer Name Role Phone Dameon Hloley MD Primary Care Provider [phone] Jordan Black DC Unavailable [phone] Source Comments [facility],non-owned Affiliates and Associated Physician Practices is amultiple site organization consisting of ambulatory clinics and hospital sitesin [place], [place] and [place]. This disclosure is being madepursuant to the Care Everywhere program and may not contain all information available regarding this patient. Last updated 18.[facility] Allergies Active Allergy Reactions Criticality Noted Date Comments Paroxetine 07/10/2013 Sulfa Drugs 07/10/2013 Medications * Be aware that medications may not be up to date on this document. Alwaysverify current medications with the patient. Venlafaxine HCl (EFFEXOR PO) once daily. Activ e LamoTRIgine (LAMICTAL PO) once daily. Acti ve ClonazePAM (KLONOPIN PO) as needed. Activ e piroxicam (FELDENE) 20 MG capsule Take 1 Cap by mouth once daily. 30 Cap 5 07/10/2013 Active Active Problems Problem Noted Date Diagnosed Date Spinal stenosis, lumbar tariq on, with neurogenic claudication 07/17/2013 Degeneration of lumbar or lumbosacral interverte bral disc 07/17/2013 Social History Tobacco Use Types Packs/Day Years Used Date Smoking Tobacco: Never Smokeless Tobacco: Never Alcohol Use Standard Drinks/Week Comments No 0 (1 standard drink = 0.6 oz pur e alcohol) Comments Unknown Sex and Gender Information Value Date Recorded Sex Assigned at Not on file Legal Sex Female 2:19 PM CDT Gender Identity Not on file Sexual Orientation Not on file Occupation Industry Job Start Date Job End Date DISABILITY Not on file Not on file Not on file Last Filed Vital Signs Vital Sign Reading Time Taken Comments Blood Pressure - - Pulse - - Temperature - - Respiratory Rate - - Oxygen Saturation - - Inhaled Oxygen Concentration - - Weight 90.7 kg (200 lb) 07/10/2013 11:17 AM CDT Height 182.9 cm (6') 07/10/2013 11:17 AM CDT Body Mass Index 27.12 07/10/2013 11:17 AM CDT Plan of Treatment Health Maintenance Due Date Last Done Comments COLOGUARD (AGES 45-75) - COL ON CA SCREENING 1967 COLON MONITORING 1967 COLONOSCOPY - COLON CA SCREENING 1967 CT COLONOGRAPHY - COLON CA SCREENING 1967 Colorectal Cancer Screening 1967 FIT - COLON CA SCREENING 1967 FLEX SIG - COLON CA SCREENING 1967 LIPID TESTING 1967 MAMMOGRAM 1967 HIV SCREENING 1982 HEPATITIS C SCREENING 04/29/1985 DTAP/TDAP/TD VACCINES (1 - Tdap) 1986 HEPATITIS B VACCINE (1 of 3 - 19+ 3-dose series) 1986 PNEUMOCOCCAL VACCINE 50+ (1 of 1 - PCV) 2017 ZOSTER VACCINE (1 of 2) 2017 COVID-19 VACCINE (1 - 2023-2 5 season) 2024 DEPRESSION SCREENING 09/18/2024 INFLUENZA VACCINE (Season Ended) 2025 HIB VACCINE Aged Out No longer eligi ble based on patient's age to complete this topic HPV VACCINE Aged Out No longer eligi ble based on patient's age to complete this topic MENINGOCOCCAL (Group B) VACC INE SHARED DECISION-MAKING Aged Out No longer eligibl e based on patient's age to complete this topic MENINGOCOCCAL GROUPS A/C/Y/W VACCINE Aged Out No longer eligible b ased on patient's age to complete this topic Insurance MEDICARE MEDICAID - [place] Care Teams Cloth Bin Packer Relationship Specialty Start Date End Date Dameon Holley MD [address] [place] [address] PCP - General Family Medicine 07/10/13 Jordan Black DC [address] [place] [address] Chiropractic 07/10/13
--- OUTSIDE RECORDS SUMMARY | 2025-01-01 15:29 | XMS_ITS | Continuity of Care Document ---
Author Organization [facility] Address [address] [place] [address] Phone Care Team Providers Care Sheriffs Name Role Phone Stephan Carrera MD Unavailable [...] - Active Procedures Procedure Date OFFICE/OUTPATIENT VISIT [facility] Advance Directives Directive Yes / No Effective [...] Encounter OFFICE/OUTPA TIENT VISIT [facility], [address], [place], [address], [place] tel:[phone] [facility] Degeneration of lumbar or lumbosacral intervertebrDi splacement of lumbar intervertebral discLumbagoSci atica 0-[address] Debi Rothman. [address], [place], [place], [id number] . tel: [phone] Specialist: Jordan Black, [address], [place], [address]. tel:[phone] ring Provider: Mahesh Mejía, [address], [place], [address]. tel:[phone] Family History Family Member Type Diagnosis Age At Onset No Information Payers Payer name Insurance type Covered democrat ID Authoriza tion(s) No Information Social History [...]
[2025-01-01 19:53] LABS: Hematocrit 46.4 % (37.0-47.0); Mean Corpuscular HGB Conc 32.3 g/dl (32-36); Mean Corpuscular Hemoglobin 28.3 pg (26-34); Mean Corpuscular Volume 87.5 fl (80-100); Mean Platelet Volume 9.2 fl (7.4-10.4); Platelet Count Result 333 k/mm3 (150-375); White Blood Count 6.4 K/mm3 (4.5-10.0)
[2025-01-01 20:00] LABS: Alanine Aminotransferase 21 U/L (6-35); Albumin Level 4.7 g/dL (3.5-5.1); Alkaline Phosphatase 107 U/L (38-126); Anion Gap 8 mmol/L (4-12); Aspartate Amino Transferase 50 U/L (14-36); Bilirubin,Total 0.4 mg/dL (0.2-1.3); Blood Urea Nitrogen 18 mg/dL (7-17); Calcium 9.7 mg/dL (8.4-10.2); Carbon Dioxide 28 mmol/L (22-30); Chloride 102 mmol/L (98-107); Cholesterol 214 mg/dL (0-200); Estimated Glomerular Filt Rate > 60; Glucose 97 mg/dL (65-110); HDL Direct 62 mg/dL; Potassium 4.3 mmol/L (3.4-5.0); Sodium 138 mmol/L (137-145); Triglycerides 131 mg/dL (<150)
[2025-01-01 20:11] LABS: LDL Cholesterol Direct 110 mg/dL
[2025-01-01 20:31] LABS: Cortisol Baseline 4.25 ug/dL
== END 2025-01-01 14:15 | disposition home or self-care (01) ==
LOC: ANHBWCLAB 14:15
PROVIDERS: PCP Nurse Practitioner Adult Health; Visit Provider Nurse Practitioner Adult Health
DX: K62.5 Hemorrhage of anus and rectum (principal); E66.3 Overweight; F41.9 Anxiety disorder, unspecified; F39 Unspecified mood [affective] disorder
CPT/HCPCS: 36415; 80053; 80061; 82533; 84443; 85027

== ENCOUNTER 2025-03-27 14:34 | Emergency (ER) | payer MEDICARE, MEDICAID, SELFPAY ==
--- NOTE | ~2025-03-27 | XR_ITS ---
EXAMINATION: XR elbow RT min 3V, XR forearm RT 2V DATE: 03/27/2025 15:12 INDICATION: Lateral right elbow and medial right forearm pain post trauma 3 weeks prior. TECHNIQUE: 1. Anteroposterior, two oblique and lateral views of the elbow were obtained. 2. AP and lateral views of the right forearm were obtained. COMPARISON: None. FINDINGS: Alignment is normal. No fracture or joint effusion. Mild osteoarthritis at the midcarpal and first ca rpal metacarpal joint. Remaining joint spaces are normal. Soft tissues are unremarkable. No elbow daryl nt effusion. IMPRESSION: 1. Mild osteoarthritis the right carpus. No elbow joint effusion or acute osseous abnormality. Reviewed, dictated and finalized at location A. IMPRESSION: 1. Mild osteoarthritis the right carpus. No elbow joint effusion or acute osseo us abnormality.
[2025-03-27 14:44] VITALS: BP 125/85; PULSE 80; RESP 16; TEMP 36.1; O2SAT 97
--- NOTE | 2025-03-27 15:56 | ED.UPPEXIN ---
HPI - Extremity Injury (Upper) General Chief Complaint: Extremity Injury, Upper Stated Complaint: Right Arm Pain Time Seen by Provider: 03/27/25 14:45 Source: patient and RN notes reviewed Mode of arrival: ambulatory Limitations: no limitations History of Present Illness HPI narrative: 59-year-old female presents Express Care complaining of right elbow pain that radiates into her right forearm for approximately 1 month ago she was using her sister's dryer when she placed her right arm in a moving dryer and was when the rotating piece of the drum continued to strike the patient's right elbow causing injury. Patient was seen in urgent care about 4 hours away where the injury occurred and she had x-rays of her right elbow that not show any fractures and she was given Mk wrap in ortho follow-up. Patient not follow-up with ortho because he lives in this area in the ortho given was 4 hours away. Patient continues to have lateral elbow pain that radiates into her right forearm and right hand. Patient reports more pain on the medial side of her right forearm. Patient reports numbness and tingling at times throughout the distal part of her right arm. Patient is able to use her right arm with normal function she says. But states that it hurts with certain movements of her right elbow. Related Data Home Medications ?Medication ?Instructions ?Recorded ?Confirmed ?Last Taken ?Type venlafaxine 150 mg 300 mg PO DAILY 11/26/19 01/01/25 Unknown History capsule,extended release 24 hr (Effexor XR) hydroxyzine HCl 50 mg tablet 50 mg PO BID PRN anxiety 11/23/23 01/01/25 Unknown History lamotrigine 100 mg tablet 100 mg PO BID 11/23/23 01/01/25 Unknown History lumateperone 10.5 mg capsule 10.5 mg PO DAILY 07/02/24 01/01/25 Unknown History (Caplyta) Allergies Allergy/AdvReac Type Severity Reaction Status Date / Time Sulfa (Sulfonamide Allergy Mild Hives Verified 03/27/25 14:54 Antibiotics) paroxetine (From Paxil) Allergy Diarrhea Verified 03/27/25 14:54 ziprasidone (From Geodon) Allergy Hypertensio Verified 03/27/25 14:54 n Review of Systems Review of Systems: CONSTITUTIONAL: Denies fever, chills, or sweats. EYES: Denies visual changes, redness, or discharge. ENT: Denies rhinorrhea, congestion, sore throat, or otalgia. CARDIOVASCULAR: Denies chest pain, palpitations, or edema. RESPIRATORY: Denies cough or dyspnea. GASTROINTESTINAL: Denies abdominal pain, nausea, vomiting, or diarrhea. GENITOURINARY: Denies dysuria or hematuria. SKIN: Denies rash, wound, or itching. MUSCULOSKELETAL: Denies back pain, joint pain, or myalgia. Positive for injury to right elbow. NEUROLOGIC: Denies headache, numbness, or weakness. PSYCHIATRIC: Denies anxiety or depression. All other systems reviewed are negative, except as documented in HPI. PMFSH Past Medical History Medical History Hives Headache Anxiety Surgical History Surgical History Hx of appendectomy with some intestines removed at same time H/O neck surgery History of back surgery H/O: hysterectomy Family History Family History Father Diabetes mellitus Hypertension Cerebrovascular accident Mother Hypertension Thyroid disorder Sibling Depression Thyroid disorder Carcinoma of colon Unknown Depression Social History Social History Smoking status: Never smoker Alcohol intake: never Substance use: never Substance use type: prescription drug Do You Feel Safe in your Home?: Yes Lack of Transportation: No Lack of Food: Never True Current Housing: I Have Housing Concerned About Future Housing: No Difficulty Paying Gas/Electric Bills: No Difficulty Paying for Meds: No Currently Unemployed: No Education: Bachelor's Degree Difficulty w/ Childcare or Family Care: No Living arrangements: with family Occupation/Education: unemployed Gender identity (if verbalized by the patient): Female Sexual Orientation (if Verbalized by the Patient): Straight or Heterosexual Agree to blood products: Yes Comments At the time of my signature, I reviewed and agree with the nursing past medical, surgical, social, and family history. There is no relevant family history pertinent to the patient complaint. Exam Narrative: GENERAL: This is a well-nourished, well-developed adult, in no apparent distress. They are non ill-appearing, nontoxic appearing. HEAD: normocephalic, atraumatic. EYES: Sclera clear/white. Vision is grossly intact. Conjunctiva normal. Extraocular movement intact. EARS: External ears normal Hearing grossly intact. NOSE: External nose normal THROAT: Mucous membranes moist NECK: Neck supple CARDIOVASCULAR: Regular rate and rhythm RESPIRATORY: Respiratory rate normal, respiratory effort nonlabored, no respiratory distress NEURO: awake, alert, and oriented to person, place and time. There were no obvious focal neurologic abnormalities. EXTREMITIES: Right arm: No obvious deformity, injury, swelling, bruising, redness. Right elbow: pain through full range of motion. mild tenderness to palpation to lateral elbow. Medial tenderness to palpation throughout the right forearm. Capillary refill less than 3 seconds. Right radial Pulse 2 +palpable. Normal sensation. Neurovascular status intact distal injury. medical support specialist strength 5/5 equal bilaterally. Full range of motion the right wrist without pain.. Patient able to make a stop sign, okay sign, thumbs-up sign, and a fist. Patient is able to wiggle her fingers. Radial ulnar nerve distribution intact. BACK: Nontender without deformity. Course Course Emergency Course: Portions of this record may have been created with voice recognition software Level of Care: Express Care Visit Vital Signs Vital signs: Vital Signs Temperature 96.9 F L 03/27/25 14:44 Pulse Rate 80 03/27/25 14:44 Respiratory Rate 16 03/27/25 14:44 Blood Pressure 125/85 03/27/25 14:44 Pulse Oximetry 97 03/27/25 14:44 Temperature 96.9 F L 03/27/25 14:44 Pulse Rate 80 03/27/25 14:44 Respiratory Rate 16 03/27/25 14:44 Blood Pressure 125/85 03/27/25 14:44 Pulse Oximetry 97 03/27/25 14:44 Reviewed MDM - Extremity Injury (Upper) [facility] Narrative Medical decision making narrative: X-ray of right elbow and right forearm were negative for any fractures or acute findings. Likely pain is all coming from patient's elbow likely related elbow strain. Patient given a new Mk wrap and ortho referral. Discussed physical exam findings. Advised supportive measures and signs/symptoms to go to the ER. Pt is appropriate for outpt treatment and f/u. Differential Diagnosis Differential diagnosis: Likely other (Forearm fracture, elbow fracture, tendinitis, elbow strain, elbow sprain) Imaging Data Radiologist's impression: ITS Impressions Elbow X-Ray 03/27/25 15:13 IMPRESSION: 1. Mild osteoarthritis the right carpus. No elbow joint effusion or acute osseous abnormality. Forearm X-Ray 03/27/25 15:13 IMPRESSION: 1. Mild osteoarthritis the right carpus. No elbow joint effusion or acute osseous abnormality. Critical Care Time Critical Care Time Critical Care Time: No Discharge Plan Discharge Clinical Impression: Injury of elbow, right Qualifiers: Encounter type: initial encounter Qualified Code(s): S59.901A - Unspecified injury of right elbow, initial encounter Patient Disposition: Home Condition: Stable Instructions: Elbow Sprain (ED) Additional Instructions: Your x-ray of her right elbow and right forearm is negative for any fractures or acute findings. Rest and elevate the elbow Apply ice or heat 15-20 minute intervals several times a day Keep it wrapped with MK or use an elbow compressive sleeve Motrin 600mg -800mg every 8 hours, alternate with Tylenol 1000mg every 8 hours as needed Follow up with your primary care provider orthopedist in 3-5 days for further evaluation and management of her symptoms. Patient Language: Stateless Prescriptions: No Action venlafaxine [Effexor XR] 150 mg Capsule,Extended Release 24hr 300 mg PO DAILY lamotrigine 100 mg tablet 100 mg PO BID hydroxyzine HCl 50 mg tablet 50 mg PO BID PRN (Reason: anxiety) cetirizine [Zyrtec] 10 mg tablet 10 mg PO DAILY Qty: 90 3RF Caplyta 10.5 mg capsule 10.5 mg PO DAILY clonazepam [Klonopin] 0.5 mg tablet 0.5 mg PO TID PRN (Reason: anxiety) Qty: 10 0RF Follow-up/Referrals: Raul Woods MD [Physician] - Milagro Jackson APRN [Primary Care Provider] - Time of Disposition: 15:32
== END 2025-03-27 15:40 | disposition home or self-care (01) ==
PROVIDERS: PCP Nurse Practitioner Adult Health
DX: S59.901D Unspecified injury of right elbow, subsequent encounter (principal); W31.89XD Contact with other specified machinery, subsequent encounter; F41.9 Anxiety disorder, unspecified
CPT/HCPCS: 73080; 73090; 99214; G0463

== ENCOUNTER 2025-05-13 00:10 | Day surgery (SDC) | payer MEDICARE, MEDICAID, SELFPAY ==
--- OUTSIDE RECORDS SUMMARY | 2013-06-27 04:15 | XMS_ITS | Continuity of Care Document ---
Author Organization [facility] Address [address] [place] [address] Phone Care Team Providers Care Configuration Management Consultant Name Role Phone Stephan Carrera MD Unavailable Unavailable Allergies, Adverse Reactions, Alerts Substance Reaction Status Criticality POTASSIUM CLAVULANATE Active No Inf ormation AMOXICILLIN TRIHYDRATE Active No In formation ZIPRASIDONE MESYLATE Active No Info rmation ZIPRASIDONE HCL Active No Informati on PAROXETINE HCL Active No Informatio n Sulfa (Sulfonamide Antibiotics) Active No Information Medications Medication Instructions Dosage Effective Dates (start - stop) Status Comments EFFEXOR XR (unknown strength) Not Available - Active LAMICTAL (unknown strength) Not Available - Active FIBERCON (unknown strength) Not Available - Active Procedures Procedure Date OFFICE/OUTPATIENT VISIT [facility] Advance Directives Directive Yes / No Effective Date File Name Resuscitation Not Answered N/A N/A Life Support Not Answered N/A N/A Intubation Not Answered N/A N/A Antibiotics Not Answered N/A N/A IV Fluid Support Not Answered N/A N/A Tube Feed Not Answered N/A N/A Other Directive N/A N/A WARNING:The information contained in this section is historical and is provided for information only and does not constitute a legal document or any assurance that the information is still accurate. Please verify the information with the moreno of the legal document before using it for clinical purposes. Encounters Encounter Description Practice Location Reason(s) For Visit Diagnoses Date Provider Providers Copied on Encounter OFFICE/OUTPA TIENT VISIT [facility], [address], [place], [address], [place] tel:[phone] [facility] Degeneration of lumbar or lumbosacral intervertebrDi splacement of lumbar intervertebral discLumbagoSci atica 0-201 3 Debi Rothman. [address] [facility], [place], [place], [id number] . tel: [phone] Specialist: Jordan Black, [address], [place], [address]. tel:[phone] ring Provider: Mahesh Mejía, [address], [place], [address]. tel:[phone] Family History Family Member Type Diagnosis Age At Onset No Information Payers Payer name Insurance type Covered libertarian ID Authoriza tion(s) No Information Social History Type Description Quantity Date Captured Comments Alcohol Use Details Unknown Caffeine Use Details Unknown Tobacco Use Status No Information Smoking Status Never smoker Non-Smoking Tobacco Use Details : No Details Available : No Details Available Sex Female Vital Signs Date / Time: Height Weight BMI Pulse Rate Blood Pressure Temperature Respiratory Rate Body Surface Area Head Circumference Head Circ. Percentile Wt./Jacques. Percentile BMI percentile Pulse Ox Inhaled Ox 10:22 AM 72.00 in 200.00 lbs 27.1 2 kg/m eter (2) 114/79 mm[Hg] Chief Complaint And Reason For Visit No Information Reason For Referral Reason For Referral No Information Plan Of Treatment Date Type Action Status Referral Ordered: RADEX SPI LUMBOSAC 2/3 VIEWS ordered History Of Present Illness Encounter Date Complaint History Of Prese nt Illness No Information Functional Status Date Functional Assessmen t No Information Instructions Date Instruction Additional Infor mation No Information Assessments Type Assessment Date No Information Patient Care Teams Name Effective Dates (start - stop) Status Members No Information
[2025-05-02 10:54] VITALS: BMI 25.7
--- OUTSIDE RECORDS SUMMARY | 2025-05-13 00:14 | XMS_ITS | Clinical Summary ---
Author Organization [facility] Address [facility] [place] [address] Care Team Providers Care Area Plant Manager Name Role Phone Unavailable Primary Care Provider [...] Screening with HPV 1997 Mammogram Screening 2007 Pneumococcal Vaccine: 50+ Ye ars (1 of 1 - PCV) 2017 Zoster Vaccines (1 of 2) 2017 COVID-19 [...]
--- OUTSIDE RECORDS SUMMARY | 2025-05-13 00:14 | XMS_ITS | Clinical Summary ---
Author Organization [facility] [employer] Address [address] [place] [address] Care Team Providers Care Biology Department Chair Name Role Phone Dameon Holley MD Primary Care Provider [phone] Jordan Black DC Unavailable [phone] Source Comments [facility],non-owned Affiliates and Associated Physician Practices is amultiple site organization consisting of ambulatory clinics and hospital sitesin [place], [place], [place] and [place]. This disclosure is being madepursuant to the Care Everywhere program and may not contain all information available regarding this patient. Last updated 18.[facility] [employer] Allergies Active Allergy Reactions Criticality Noted Date [...] season) 2024 DEPRESSION SCREENING 09/18/2024 INFLUENZA VACCINE (#1) 2025 HIB VACCINE Aged Out No longer [...] this topic Insurance MEDIC[place] [id number] Care Teams Biology Department Chair Relationship Specialty Start Date End Date Dameon Holley MD [address] [place] [address] PCP - General Family Medicine 07/10/13 Jordan Black DC [address] [place] [address] Chiropractic 07/10/13
--- OUTSIDE RECORDS SUMMARY | 2025-05-13 00:15 | XMS_ITS | Clinical Summary ---
Author Organization [facility] Address [address] [place] [phone] Phone Care Team Providers Care Security Infrastructure Engineer Name Role Phone Unavailable Primary Care Provider [...] (1 of 3 - 19+ 3-dose series) 04/18 COLORECTAL SCREENING 2012 Colorectal Cancer Screening 2012 FIT-DNA Q 3 years 2012 FIT/FOBT Q 1 year 2012 Flex Sig/CT Colonography Q 5 years 2012 ZOSTER VACCINE (1 of 2) 2017 INFLUENZA VACCINE (#1) 2025 Insurance MEDICARE PART A AND B
--- OUTSIDE RECORDS SUMMARY | 2025-05-13 00:15 | XMS_ITS | Patient Health Record ---
Author Organization [facility] [employer] Address [address] [place] [address] Care Team Providers Care Nascar Driver Name Role Phone Milagro Jackson APRN Primary Care Provider Mookie Almaguer Unavailable [phone] Allergies Allergen (clinical drug ingredient) Drug/Non Drug Allergy documented on EMR Reaction Allergy Type Onset Date Status Substance with sulfonamide structure and antibacterial mechanism of action (substance) SULFA (SULFONAMIDE ANTIBIOTICS) (uncoded) Unknown Allergy 01/17/2024 Active ziprasidone Geodon Unknown Drug Allergy 01/17/2024 Acti ve paroxetine Paxil Unknown Drug Allergy 01/17/2024 Activ e Reason For Referral No Information Medications Medication SIG (Take, Route, Frequency, Duration) Notes Start Date End Date Status lamoTRIgine 100 MG Tablet 1 tablet Oral Twice a day; Duration: 30 days Active Venlafaxine HCl ER 150 MG Capsule Extended Release 24 Hour 1 CAPSULE Oral twice a day; Duration: 30 days Active Venlafaxine HCl ER 150 MG Capsule Extended Release 24 Hour TAKE 1 CAPSULE BY MOUTH TWICE DAILY; Duration: 30 Active hydrOXYzine HCl 50 MG Tablet 1 tablet Oral four times a day; Duration: 30 days As needed Active clonazePAM 0.5 MG Tablet 1 tablet Oral t hree times a day; Duration: 30 days 05/06/2025 Active Social History Tobacco Use: Social History Observation Description Date Details (start date - stop date) Never Smoker NA - NA Sex Assigned At : Social History Observation Description Sex Assigned At Female Social History Tobacco Use: Social Info Question Answer Notes Tobacco Control (Standard) Tobacco use: Nonsmoker Additional Details Category Social Info Options Details Migrated Social History Migrated Social History Alcohol Intake: None 10/30/2023,Tobacco Years: Never smoker 10/30/2023 Problems Problem Type SNOMED Code ICD Code Onset Dates Problem Status W/U Status Risk Notes Problem Moderate recurrent major depression (32964530) Major depressive disorder, recurrent, moderate (F33.1) Active confirmed Problem Generalized anxiety disorder (35255540) Generalized anxiety disorder (F41.1) Active confirmed Problem Insomnia disorder related to another mental disorder (60502402) Insomnia due to other mental disorder (F51.05) Active confirmed Problem Mild recurrent major depression (48385652) Major depressive disorder, recurrent episode, mild (F33.0) Active confirmed Vital Signs Heart Rate 101 /min 03/25/2025 Height-cm 182.88 cm 03/25/2025 Blood pressure diastolic 77 mm Hg 03/25/2025 Weight-kg 91.17 kg 03/25/2025 Height 72.00 in 03/25/2025 Blood pressure systolic 140 mm Hg 03/25/2025 Weight 201 lbs 03/25/2025 BMI 27.26 kg/m2 03/25/2025 Encounters Encounter Location Date Provider Diagnosis [facility] [place] [address] [address] [facility] [address] [address] 06/07/2024 Mookie Sue Major depressive disorder, recurrent episode, mild F33.0 ; Generalized anxiety disorder F41.1 and Insomnia due to other mental disorder F51.05 [facility] [address] [address] 11/13/2024 Mookie Sue [facility] [employer] [place] [address] [address] 12/24/2024 Mookie Sue Encounter for screen ing for depression Z13.31 ; Encounter for screening for cardiovascular disorders Z13.6 ; Dietary counseling and surveillance Z71.3 ; Major depressive disorder, recurrent episode, mild F33.0 ; Generalized anxiety disorder F41.1 and Insomnia due to other mental disorder F51.05 [employer] [place] [address] [address] 01/23/2025 Mookie Sue Negative depression screening Z13.31 ; Encounter for screening for cardiovascular disorders Z13.6 ; Encounter for screening for depression Z13.31 ; Dietary counseling and surveillance Z71.3 ; Major depressive disorder, recurrent episode, mild F33.0 ; Generalized anxiety disorder F41.1 and Insomnia due to other mental disorder F51.05 [facility], [facility] [address] [place] [address] 03/25/2025 Mookie Sue Major depressive disorder, recurrent episode, mild F33.0 ; Generalized anxiety disorder F41.1 and Insomnia due to other mental disorder F51.05 [facility], [facility] [address] [place] [address] 05/21/2024 Mookie Sue Major depressive disorder, recurrent episode, mild F33.0 [facility], [facility] [address] [place] [address] 06/11/2024 Mookie Sue Major depressive disorder, recurrent, moderate F33.1 [facility], [facility] [address] [place] [address] 09/16/2024 Mookie Sue [facility], [facility] [address] [place] [address] 11/04/2024 Mookie Sue [facility], [facility] [address] [place] [address] 03/03/2025 Mookie Sue Major depressive disorder, recurrent episode, mild F33.0 and Generalized anxiety disorder F41.1 [facility], [facility] [address] [place] [address] 04/01/2025 Mookie Sue Generalized anxiety disorder F41.1 [facility], [facility] [address] [place] [address] 05/22/2024 Mookie Sue Major depressive disorder, recurrent episode, mild F33.0 [facility], [facility] [address] [place] [address] 07/19/2024 Mookie Sue Major depressive disorder, recurrent episode, mild F33.0 [facility], [facility] [address] [place] [address] 07/19/2024 Mookie Sue Generalized anxiety disorder F41.1 [facility], [facility] [address] [place] [address] 08/21/2024 Mookie Sue Generalized anxiety disorder F41.1 [facility], [facility] [address] [place] [address] 09/02/2024 Mookie Sue Major depressive disorder, recurrent episode, mild F33.0 [facility] [address] [place] [address] 09/29/2024 Mookie Sue Generalized anxiety disorder F41.1 [facility] [address] [place] [address] 10/29/2024 Mookie Sue Generalized anxiety disorder F41.1 [facility] [address] [place] [address] 11/25/2024 Mookie Sue Generalized anxiety disorder F41.1 [facility] [address] [place] [address] 12/31/2024 Mookie Sue [facility] [address] [place] [address] 12/31/2024 Mookie Sue Generalized anxiety disorder F41.1 [facility] [address] [place] [address] 01/28/2025 Mookie Sue Generalized anxiety disorder F41.1 [facility] [address] [place] [address] 05/05/2025 Mookie Sue Generalized anxiety disorder F41.1 Assessments Encounter Date Diagnosis (ICD Code) Assessment Notes Treatment Notes Treatment Clinical Notes Section Notes 05/05/2025 Generalized anxiety disorder (ICD-10 - F41.1) 04/01/2025 Generalized anxiety disorder (ICD-10 - F41.1) 03/25/2025 Major depressive disorder, recurrent episode, mild (ICD-10 - F33.0) cont venlafaxine er 150mg daily, lamotrigine She has been on Clonazepam for multiple years- states she doesn't remember not being on itdiscussed will plan to decrease clonazepam to most tolerable dose, ideally prn usewill try to taper off lamotrigine 03/03/2025 Major depressive disorder, recurrent episode, mild (ICD-10 - F33.0) 01/28/2025 Generalized anxiety disorder (ICD-10 - F41.1) 12/31/2024 Generalized anxiety disorder (ICD-10 - F41.1) 05/22/2024 Major depressive disorder, recurrent episode, mild (ICD-10 - F33.0) 12/24/2024 Encounter for screening for depression (ICD-10 - Z13.31) 01/23/2025 Negative depression screening (ICD-10 - Z13.31) 11/25/2024 Generalized anxiety disorder (ICD-10 - F41.1) 10/29/2024 Generalized anxiety disorder (ICD-10 - F41.1) 09/29/2024 Generalized anxiety disorder (ICD-10 - F41.1) 08/21/2024 Generalized anxiety disorder (ICD-10 - F41.1) 07/19/2024 Generalized anxiety disorder (ICD-10 - F41.1) 07/19/2024 Major depressive disorder, recurrent episode, mild (ICD-10 - F33.0) 09/02/2024 Major depressive disorder, recurrent episode, mild (ICD-10 - F33.0) 06/07/2024 Major depressive disorder, recurrent episode, mild (ICD-10 - F33.0) cont venlafaxine er 150mg daily, lamotrigine She has been on Clonazepam for multiple years- states she doesn't remember not being on itdiscussed will plan to decrease clonazepam to most tolerable dose, ideally prn usewill try to taper off lamotrigine 1. Anxiety disorder: - The patient reports increased anxiety over the past month due to life stressors, including relationship issues, financial difficulties, and family dynamics. She has been taking clonazepam 1.25 mg and hydroxyzine 50 mg four times a day as needed for anxiety. Plan: - Continue clonazepam 1.25 mg and hydroxyzine 50 mg four times a day as needed for anxiety. - Encourage the patient to seek therapy or counseling to address life stressors and develop coping strategies. - Reevaluate the effectiveness of the current anxiety medications in one month. 2. Major depressive disorder: - The patient reports worsening depression since April, exacerbated by life stressors. She is currently on venlafaxine ER 150 mg once a day. Plan: - Continue venlafaxine ER 150 mg once a day. - Initiate Caplyta (lumateperone) 10.5 mg once a day as an adjunct treatment for depression. - Monitor for any side effects or changes in weight. - Reevaluate the effectiveness of the new medication in one month. 3. Insomnia: - The patient reports difficulty sleeping, feeling tired at 9 PM but wide awake at 11 PM. Plan: - Encourage the patient to practice good sleep hygiene, including establishing a regular sleep schedule, creating a relaxing bedtime routine, and avoiding stimulants before bedtime. - Reevaluate sleep patterns and consider additional interventions if insomnia persists. 05/21/2024 Major depressive disorder, recurrent episode, mild (ICD-10 - F33.0) 06/11/2024 Major depressive disorder, recurrent, moderate (ICD-10 - F33.1) Electronic Prior Authorization was requested for Caplyta 10.5 MG Capsule. Provider can order medication once approval received. 06/07/2024 Generalized anxiety disorder (ICD-10 - F41.1) clonazepam 1.25mg daily total dose hydroxyzine 50mg qid prn 1. Anxiety disorder: - The patient reports increased anxiety over the past month due to life stressors, including relationship issues, financial difficulties, and family dynamics. She has been taking clonazepam 1.25 mg and hydroxyzine 50 mg four times a day as needed for anxiety. Plan: - Continue clonazepam 1.25 mg and hydroxyzine 50 mg four times a day as needed for anxiety. - Encourage the patient to seek therapy or counseling to address life stressors and develop coping strategies. - Reevaluate the effectiveness of the current anxiety medications in one month. 2. Major depressive disorder: - The patient reports worsening depression since April, exacerbated by life stressors. She is currently on venlafaxine ER 150 mg once a day. Plan: - Continue venlafaxine ER 150 mg once a day. - Initiate Caplyta (lumateperone) 10.5 mg once a day as an adjunct treatment for depression. - Monitor for any side effects or changes in weight. - Reevaluate the effectiveness of the new medication in one month. 3. Insomnia: - The patient reports difficulty sleeping, feeling tired at 9 PM but wide awake at 11 PM. Plan: - Encourage the patient to practice good sleep hygiene, including establishing a regular sleep schedule, creating a relaxing bedtime routine, and avoiding stimulants before bedtime. - Reevaluate sleep patterns and consider additional interventions if insomnia persists. 01/23/2025 Encounter for screening for cardiovascular disorders (ICD-10 - Z13.6) 12/24/2024 Encounter for screening for cardiovascular disorders (ICD-10 - Z13.6) 03/03/2025 Generalized anxiety disorder (ICD-10 - F41.1) 03/25/2025 Generalized anxiety disorder (ICD-10 - F41.1) clonazepam 1.25mg daily total dose hydroxyzine 50mg qid prn 03/25/2025 Insomnia due to other mental disorder (ICD-10 - F51.05) 12/24/2024 Dietary counseling and surveillance (ICD-10 - Z71.3) 06/07/2024 Insomnia due to other mental disorder (ICD-10 - F51.05) 1. Anxiety disorder: - The patient reports increased anxiety over the past month due to life stressors, including relationship issues, financial difficulties, and family dynamics. She has been taking clonazepam 1.25 mg and hydroxyzine 50 mg four times a day as needed for anxiety. Plan: - Continue clonazepam 1.25 mg and hydroxyzine 50 mg four times a day as needed for anxiety. - Encourage the patient to seek therapy or counseling to address life stressors and develop coping strategies. - Reevaluate the effectiveness of the current anxiety medications in one month. 2. Major depressive disorder: - The patient reports worsening depression since April, exacerbated by life stressors. She is currently on venlafaxine ER 150 mg once a day. Plan: - Continue venlafaxine ER 150 mg once a day. - Initiate Caplyta (lumateperone) 10.5 mg once a day as an adjunct treatment for depression. - Monitor for any side effects or changes in weight. - Reevaluate the effectiveness of the new medication in one month. 3. Insomnia: - The patient reports difficulty sleeping, feeling tired at 9 PM but wide awake at 11 PM. Plan: - Encourage the patient to practice good sleep hygiene, including establishing a regular sleep schedule, creating a relaxing bedtime routine, and avoiding stimulants before bedtime. - Reevaluate sleep patterns and consider additional interventions if insomnia persists. 01/23/2025 Encounter for screening for depression (ICD-10 - Z13.31) 12/24/2024 Major depressive disorder, recurrent episode, mild (ICD-10 - F33.0) cont venlafaxine er 150mg daily, lamotrigine She has been on Clonazepam for multiple years- states she doesn't remember not being on itdiscussed will plan to decrease clonazepam to most tolerable dose, ideally prn usewill try to taper off lamotrigine 01/23/2025 Dietary counseling and surveillance (ICD-10 - Z71.3) 12/24/2024 Generalized anxiety disorder (ICD-10 - F41.1) clonazepam 1.25mg daily total dose hydroxyzine 50mg qid prn 01/23/2025 Major depressive disorder, recurrent episode, mild (ICD-10 - F33.0) cont venlafaxine er 150mg daily, lamotrigine She has been on Clonazepam for multiple years- states she doesn't remember not being on itdiscussed will plan to decrease clonazepam to most tolerable dose, ideally prn usewill try to taper off lamotrigine 12/24/2024 Insomnia due to other mental disorder (ICD-10 - F51.05) 01/23/2025 Generalized anxiety disorder (ICD-10 - F41.1) clonazepam 1.25mg daily total dose hydroxyzine 50mg qid prn 01/23/2025 Insomnia due to other mental disorder (ICD-10 - F51.05) 12/24/2024 Other Summer Chance, a female patient with a history of depression and anxiety, presents with worsening depressive symptoms, weight gain, and recent self-harming behaviors over the past 6 months. Major Depressive Disorder Assessment: Patient reports significant worsening of depressive symptoms over the past 6 months, describing her condition as terrible and pretty consistently so. Contributing factors include financial stress due to her son's gambling, leading to inability to pay rent and utilities being shut off. Patient has experienced regression in behavior, including self-harm (hitting legs). Weight gain is also a concern, with an increase from 192 to 214 pounds. Patient reports excessive sweating and body image issues, as well as periods of excessive sleep and daytime fatigue. Current medications include venlafaxine 150 mg twice daily and lamotrigine 100 mg twice daily. Patient discontinued Caplyta 2-3 weeks ago due to inability to obtain the medication, but reports that her sister noticed a positive difference when she was taking it. Plan: - Increase Caplyta to 21 mg daily for depression - Provided samples of Caplyta 21 mg - Continue venlafaxine 150 mg PO twice daily - Continue lamotrigine 100 mg PO twice daily - Follow up in one month Anxiety Disorder Assessment: Patient reports ongoing anxiety symptoms, including panic attacks in October. She is currently taking hydroxyzine as needed and clonazepam, particularly when going out or attending social events. Patient reports being able to manage anxiety better when at home and believes she is not addicted to clonazepam, noting that she can go without it some days without experiencing withdrawal symptoms. Plan: - Continue hydroxyzine as needed, up to 4 times daily - Continue clonazepam as needed, particularly for social situations - Encouraged patient to use hydroxyzine instead of clonazepam when possible, especially when at home Weight Gain Assessment: Patient reports significant weight gain, from 192 to 214 pounds. She has consulted with a nurse informaticist who provided information about GLP-1 receptor agonists (Mounjaro or Ozempic) for weight loss. Patient's sisters have suggested seeing an biomass facilitator to check cortisol levels. Plan: - Discussed potential benefits and risks of GLP-1 receptor agonists for weight loss - Informed patient about possible side effects, including worsening of depression, GI issues, and impact on appetite - Patient to consider endocrinology referral for further evaluation of weight gain and possible hormonal factors the note is transcribed using speech recognition software. It is a reflection of a visit with the patient. It might have some inaccuracy, including medication names and transcribing errors, though efforts have been made to correct them. 01/23/2025 Anamaria Chance, a patient with a history of depression and anxiety, presents for follow-up after a 2.5-3 week absence, reporting improved mood and physical activity but concerns about weight gain. Depression Assessment: Patient reports significant improvement in depressive symptoms during her absence. She discontinued the higher dose of Caplyta (21 mg) and only took the lower dose, experiencing almost non-existent depression. This suggests that the lower dose may be effective in managing her depressive symptoms. However, the specific lower dose was not mentioned in the transcript. Plan: - Resume Caplyta 21 mg daily - Continue venlafaxine 150 mg PO twice daily - Continue lamotrigine (dose not specified) twice daily - Follow up in one month Anxiety Assessment: Patient acknowledges ongoing anxiety but reports it as manageable without significant stress. The improvement in anxiety symptoms appears to coincide with increased physical activity and social engagement, as evidenced by her ability to walk in stores without using an electric cart. Plan: - Continue current medication regimen as outlined in the depression plan - Encourage continuation of physical activity as tolerated Weight Management Assessment: Patient expresses distress about recent weight fluctuations. She reports weighing 216-217 pounds initially, dropping to 208 pounds, and now weighing 213 pounds. The weight gain is causing emotional distress and may be impacting other health parameters, as indicated by slightly elevated cholesterol and liver function tests. Plan: - Patient referred to a dietitian by another provider - Encourage adherence to dietitian recommendations when received - Monitor weight at future appointments Chronic Pain Assessment: Patient mentions having surgery prior to the COVID-19 pandemic without subsequent physical therapy. She reports improved mobility, now able to walk into some stores, but still has limitations with larger stores like [employer]. A referral to pain management has been made by another provider. Plan: - Follow up with pain management as referred by another provider - Continue to encourage gradual increase in physical activity as tolerated the note is transcribed using speech recognition software. It is a reflection of a visit with the patient. It might have some inaccuracy, including medication names and transcribing errors, though efforts have been made to correct them. 03/25/2025 Other Summer Chance, a patient with a history of anxiety and medication management, presents with recent mood improvement, weight loss, and concerns about medication adherence. Anxiety Assessment: Patient reports experiencing anxiety no matter where I go. She recently had an episode where she felt unbalanced during a walk, which her pediatric ophthalmologist attributed to possible missed medication. However, the patient believes she did not miss her medication, as she typically experiences more severe symptoms (crawling the christina) when non-adherent. This suggests ongoing anxiety management challenges despite current treatment. Plan: - Continue venlafaxine - Continue lamotrigine - Continue hydroxyzine as needed - Continue offering clonazepam - Follow up in 3 months Medication Management Assessment: Patient reports discontinuing Caplyta due to excessive drowsiness and fatigue. She states, The Caplyta made me so tired. I fell asleep, but I think I can handle that one hundreds cause it doesn't make me tired. This suggests improved tolerability with the current medication regimen. Patient has also stopped consuming Diet Mountain Dew for 3 weeks, which she associates with a 10-pound weight loss. Plan: - Discontinue Caplyta - Refill current medications - Follow up in 3 months Mood Assessment: Patient reports her mood as Great, noting she has been with her family for 5.5 weeks. She also mentions having fewer headaches, attributing this to having an empty mind. These statements suggest an improvement in overall mood and potentially reduced stress or anxiety symptoms. the note is transcribed using speech recognition software. It is a reflection of a visit with the patient. It might have some inaccuracy, including medication names and transcribing errors, though efforts have been made to correct them. Plan Of Treatment Pending Test Test Name Order Date UDT 03/26/2024 Next Appt Details Provider Name:Mookie Amber cazares, 06/19/2025 02:45:00 PM, [address], [facility] [address], [place], [address], Insurance Providers Payer Name Payer Address Payer Phone Subscriber Number Group Number Insured Name Patient Relationship to Insured Coverage Start Date Coverage End Date [employer] Medicare Replacement/ Advantage - Ppo [address] [address] [place] [address] [id number] VERONICA SUMMER Self - patient is the insured [place] [address] [address] [place] [address] [id number] CEHSTERARACELISUMMER Cannon Self - patient is the insured Medical (General) History Medical History History ICD Code Problems: Generalized anxiety disorder Insomnia disorder related to another men laura disorder Mild recurrent major depression Moderate recurrent major depression Panic disorder , Surgical History Surgery Date(Month/Year) Any surgical history Reconstructive surgery 01/03/2011 Hysterectomy (68434) 03/20/2011 Other 03/20/2011 Sinus surgery 03/20/2021 Appendectomy (40400) 05/25/1989
--- NOTE | 2025-05-13 08:45 | WPDANESEPPF ---
Anes - Initial Pre Proc Eval Procedure: Operation Date: 05/13/25 11:00 Proposed Procedures p Colonoscopy - Harsha Wiley MD Date/Time: 05/13/25 08:45 Surgeon: Harsha Wiley MD Pre Op Diagnosis: Hemorrhage of anus and rectum Patient Data Age: 60 Gender: F Height: 1.83 m Weight: 86.2 kg Allergies Allergy/AdvReac Type Severity Reaction Status Date / Time Sulfa (Sulfonamide Allergy Mild Hives Verified 05/13/25 10:01 Antibiotics) paroxetine (From Paxil) Allergy Diarrhea Verified 05/13/25 10:01 ziprasidone (From Geodon) Allergy Hypertensio Verified 05/13/25 10:01 n Home Medications ?Medication ?Instructions ?Recorded ?Confirmed ?Type venlafaxine 150 mg 300 mg PO DAILY 11/26/19 05/13/25 History capsule,extended release 24 hr (Effexor XR) clonazepam 0.5 mg tablet (Klonopin) 0.5 mg PO TID PRN anxiety #10 tabs 10/17/23 05/13/25 Rx hydroxyzine HCl 50 mg tablet 50 mg PO BID PRN anxiety 11/23/23 05/02/25 History lamotrigine 100 mg tablet 100 mg PO BID 11/23/23 05/13/25 History lumateperone 10.5 mg capsule 10.5 mg PO DAILY 07/02/24 05/02/25 History (Caplyta) black cohosh 40 mg tablet 40 mg PO BID 05/02/25 05/13/25 History cetirizine 10 mg tablet (Zyrtec) 10 mg PO DAILY PRN allergy symptoms 05/02/25 05/02/25 History Patient hx anesthesia problems: none Family hx anesthesia problems: none Results Review: All pre-operative results and documents have been reviewed as part of the pre-operative evaluation. FOR[facility]LY [facility] Past Medical History Medical History (Updated 04/02/25 @ 14:03 by Raul Woods MD) Right elbow tendonitis Right elbow pain Hives Headache Anxiety Surgical History Surgical History Hx of appendectomy with some intestines removed at same time H/O neck surgery History of back surgery H/O: hysterectomy Family History Family History Father Diabetes mellitus Hypertension Cerebrovascular accident Mother Hypertension Thyroid disorder Sibling Depression Thyroid disorder Carcinoma of colon Unknown Depression Social History Social History Smoking status: Never smoker Alcohol intake: never Substance use: never Substance use type: prescription drug Do You Feel Safe in your Home?: Yes Lack of Transportation: No Lack of Food: Never True Current Housing: I Have Housing Concerned About Future Housing: No Difficulty Paying Gas/Electric Bills: No Difficulty Paying for Meds: No Currently Unemployed: No Education: Bachelor's Degree Difficulty w/ Childcare or Family Care: No Living arrangements: with family Occupation/Education: unemployed Gender identity (if verbalized by the patient): Female Sexual Orientation (if Verbalized by the Patient): Straight or Heterosexual Agree to blood products: Yes Anes - Eval Final PreProcedure Day of Procedure 05/13/25 08:45 Patient weight: overweight Heart: regular rate and rhythm Lungs: clear to auscultation Airway: Mallampati scale class II Neurological: alert and oriented Last oral intake: >/= 8 hours ASA classification: II Emergent: no Anesthetic plan: proceed Anesthesia type and monitoring: general GIVS and standard monitoring Results Review: All pre-operative results and documents have been reviewed as part of the pre-operative evaluation. Informed Consent: The patient's anesthetic plan and its attendant risks and benefits were discussed with the patient/family/POA. Questions were solicited and answers provided to the satisfaction of the patient/family/POA.
[2025-05-13 10:03] VITALS: BP 114/82; PULSE 70; RESP 18; TEMP 36.1; O2SAT 100; BMI 25.9
[2025-05-13] MEDS: LACTATED RINGERS 1,000 ML 150 ML IV CONT (10:26)
--- NOTE | 2025-05-13 11:28 | PM.IMHP ---
H&P: HPI History of Present Illness Date/Time: 05/13/25 11:28 Chief Complaint: screening colonoscopy Narrative: This is the patient's first colonoscopy. There are no GI symptoms and there is no family history of colorectal cancer. in 1988, she had part of her small bowel removed, apparently due to a Meckel's diverticulum, but she is not sure about the diagnosis. She never had a colonoscopy or x-ray studies of her colon after that. Review of Systems Review of Systems: All systems reviewed & are unremarkable except as noted in HPI and below [facility] Past Medical History Medical History (Updated 05/13/25 @ 11:30 by Harsha Wiley MD) Right elbow tendonitis Right elbow pain Hives Headache Anxiety Surgical History Surgical History Hx of appendectomy with some intestines removed at same time H/O neck surgery History of back surgery H/O: hysterectomy Family History Family History Father Diabetes mellitus Hypertension Cerebrovascular accident Mother Hypertension Thyroid disorder Sibling Depression Thyroid disorder Carcinoma of colon Unknown Depression Social History Social History Smoking status: Never smoker Alcohol intake: never Substance use: never Substance use type: prescription drug Do You Feel Safe in your Home?: Yes Lack of Transportation: No Lack of Food: Never True Current Housing: I Have Housing Concerned About Future Housing: No Difficulty Paying Gas/Electric Bills: No Difficulty Paying for Meds: No Currently Unemployed: No Education: Bachelor's Degree Difficulty w/ Childcare or Family Care: No Living arrangements: with family Occupation/Education: unemployed Gender identity (if verbalized by the patient): Female Sexual Orientation (if Verbalized by the Patient): Straight or Heterosexual Agree to blood products: Yes Meds Home Medications and Allergies Home Medications ?Medication ?Instructions ?Recorded ?Confirmed ?Type venlafaxine 150 mg 300 mg PO DAILY 11/26/19 05/13/25 History capsule,extended release 24 hr (Effexor XR) clonazepam 0.5 mg tablet (Klonopin) 0.5 mg PO TID PRN anxiety #10 tabs 10/17/23 05/13/25 Rx hydroxyzine HCl 50 mg tablet 50 mg PO BID PRN anxiety 11/23/23 05/02/25 History lamotrigine 100 mg tablet 100 mg PO BID 11/23/23 05/13/25 History lumateperone 10.5 mg capsule 10.5 mg PO DAILY 07/02/24 05/02/25 History (Caplyta) black cohosh 40 mg tablet 40 mg PO BID 05/02/25 05/13/25 History cetirizine 10 mg tablet (Zyrtec) 10 mg PO DAILY PRN allergy symptoms 05/02/25 05/02/25 History Allergies Allergy/AdvReac Type Severity Reaction Status Date / Time Sulfa (Sulfonamide Allergy Mild Hives Verified 05/13/25 10:01 Antibiotics) paroxetine (From Paxil) Allergy Diarrhea Verified 05/13/25 10:01 ziprasidone (From Geodon) Allergy Hypertensio Verified 05/13/25 10:01 n Vital Signs Vital Signs - 24 hr 05/13/25 10:03 Temperature 96.9 F L Pulse Rate 70 Respiratory Rate 18 Blood Pressure 114/82 Pulse Oximetry 100 Oxygen Delivery Room Air Exam Const: General: cooperative and healthy appearing Resp: Effort & Inspection: normal respiratory effort and able to speak in complete sentences Auscultation: clear to auscultation bilaterally Cardio: Rate: regular rate Rhythm: regular rhythm GI: Inspection: normal to inspection GI Palp: No No hepatosplenomegaly present Auscultation: normal bowel sounds Rectal Exam: deferred Skin: General skin exam: normal color Psych: Appearance: grossly normal Mental Status: mental status grossly normal Assessment and Plan Assessment and plan (1) Encounter for screening colonoscopy: Code(s): Z12.11 - Encounter for screening for malignant neoplasm of colon Status: Acute Assessment and Plan: The patient is deemed a good candidate for the procedure. Consent signed. Will proceed.
[2025-05-13 11:56] VITALS: BP 119/66; PULSE 65; RESP 17; O2SAT 100
[2025-05-13 12:06] VITALS: BP 110/69; PULSE 61; RESP 17; O2SAT 100
[2025-05-13 12:16] VITALS: BP 120/73; PULSE 55; RESP 15; O2SAT 100
== END 2025-05-13 12:45 | disposition home or self-care (01) ==
PROVIDERS: PCP Nurse Practitioner Adult Health; Referring Provider Nurse Practitioner Adult Health; Visit Provider Internal Medicine Gastroenterology
PROC: 0DJD8ZZ Inspection of Lower Intestinal Tract, Via Natural or Artificial Opening Endoscopic (ICD-10-PCS; CPT 45378; principal; 2025-05-13 11:00)
DX: Z12.11 Encounter for screening for malignant neoplasm of colon (principal); K57.30 Diverticulosis of large intestine without perforation or abscess without bleeding; F41.9 Anxiety disorder, unspecified; Z98.890 Other specified postprocedural states; Z98.1 Arthrodesis status; Z80.0 Family history of malignant neoplasm of digestive organs
CPT/HCPCS: G0105; J2003; J2704; J7120

== ENCOUNTER 2025-05-24 10:50 | Emergency (ER) | payer MEDICARE, MEDICAID, SELFPAY ==
[2025-05-24 11:05] VITALS: BP 122/83; PULSE 86; RESP 16; TEMP 36.4; O2SAT 98
--- NOTE | 2025-05-24 12:20 | ED_ITS ---
HPI - URI/Sore Throat General Chief Complaint: Upper Respiratory Infection Stated Complaint: HEADACHE/COLD SYMPTOMS/L TONSIL PAIN Source: patient and RN notes reviewed Mode of arrival: ambulatory Limitations: no limitations History of Present Illness HPI Narrative: 60-year-old female presented for complaint of sore throat, fatigue, headache, body aches, sinus pressure/congestion, cough, occasional diarrhea, fever/chills. Taking Mucinex and Tylenol. Denies sob, wheezing, n/v or lethargy. MD elicited complaint: cough Related Data Home Medications ?Medication ?Instructions ?Recorded ?Confirmed ?Last Taken ?Type venlafaxine 150 mg 300 mg PO DAILY 11/26/1903/1205/13/25 History capsule,extended release 24 hr (Effexor XR) hydroxyzine HCl 50 mg tablet 50 mg PO BID PRN anxiety 11/23/23 05/24/25 Unknown History lamotrigine 100 mg tablet 100 mg PO BID 11/23/2305/2405/12/25 History cetirizine 10 mg tablet (Zyrtec) 10 mg PO DAILY PRN al lergy symptoms 05/02/25 05/24/25 Unknown History Allergies Allergy/AdvReac Type Severity Reaction Status Date / Time Sulfa (Sulfonamide Allergy Mild Hives Verified 05/24/25 11:05 Antibiotics) paroxetine (From Paxil) Allergy Diarrhea Verified 05/24/25 11:05 ziprasidone (From Geodon) Allergy Hypertensio Verified 05/24/25 11:05 n Review of Systems Review of Systems: CONSTITUTIONAL: Endorses malaise, body aches, chills, sweats, fever EYES: Denies visual changes, redness, or discharge ENT: Reports rhinorrhea, congestion, sinus pain, otalgia, sore throat CARDIOVASCULAR: Denies chest pain, palpitations, edema RESPIRATORY: Reports cough, post nasal drainage. Denies dyspnea GASTROINTESTINAL: Denies abdominal pain, nausea, vomiting, diarrhea SKIN: Denies rash or itching NEUROLOGIC: reports headache PMFSH Past Medical History Medical History Right elbow tendonitis Right elbow pain Hives Headache Anxiety Surgical History Surgical History Hx of appendectomy with some intestines removed at same time H/O neck surgery History of back surgery H/O: hysterectomy Family History Family History Father Diabetes mellitus Hypertension Cerebrovascular accident Mother Hypertension Thyroid disorder Sibling Depression Thyroid disorder Carcinoma of colon Unknown Depression Sibling Cancer Social History Social History Smoking status: Never smoker Alcohol intake: never Substance use: never Substance use type: prescription drug Do You Feel Safe in your Home?: Yes Lack of Transportation: No Lack of Food: Never True Current Housing: I Have Housing Concerned About Future Housing: No Difficulty Paying Gas/Electric Bills: No Difficulty Paying for Meds: No Currently Unemployed: No Education: Bachelor's Degree Difficulty w/ Childcare or Family Care: No Living arrangements: with family Occupation/Education: unemployed Gender identity (if verbalized by the patient): Female Sexual Orientation (if Verbalized by the Patient): Straight or Heterosexual Spiritual care concerns: No Agree to blood products: Yes Exam Narrative: GENERAL: well-appearing, nontoxic no acute distress. EYES: conjunctivae clear ENT: Mucous membranes moist. TMs pearly hansen with dull light reflex bilaterally; no tragal tenderness. Oropharynx erythematous without lesions or exudate, no drooling, no hoarseness, no trismus, uvula midline. No tripod positioning, muffled voice, soft palate or pharyngeal wall bulging NECK: Supple. No lymphadenopathy CHEST: Clear to auscultation, breath sounds equal. No wheezing, rhonchi, rales, or stridor. No respiratory distress, speaks in full sentences. HEART: Regular rate and rhythm. No murmur heard. SKIN: Warm, dry, no rash. NEURO: Alert and oriented x3. PSYCH: Normal mood and affect Course Course Emergency Course: Patient is aware of diagnosis, understands and agrees to treatment plan. Anticipatory guidance given. Patient agrees to follow-up as directed and is aware of reasons to seek care at the emergency department. Portions of this record may have been created with voice recognition software Level of Care: Express Care Visit Vital Signs Vital signs: Vital Signs Temperature 97.6 F 05/24/25 11:05 Pulse Rate 86 05/24/25 11:05 Respiratory Rate 16 05/24/25 11:05 Blood Pressure 122/83 05/24/25 11:05 Pulse Oximetry 98 05/24/25 11:05 Temperature 97.6 F 05/24/25 11:05 Pulse Rate 86 05/24/25 11:05 Respiratory Rate 16 05/24/25 11:05 Blood Pressure 122/83 05/24/25 11:05 Pulse Oximetry 98 05/24/25 11:05 reviewed MDM - URI/Sore Throat MDM Narrative Medical decision making narrative: Positive COVID. Negative flu and strep. Results reviewed with patient. Discussed physical exam findings. Advised supportive measures and signs/symptoms to go to the ER. Pt is appropriate for outpt treatment and f/u. Differential Diagnosis Differential diagnosis: Likely upper respiratory infection, sinusitis and viral infection Discharge Plan Discharge Clinical Impression: COVID-19 Patient Disposition: Home Condition: Stable Instructions: Antibiotic Form, COVID-19 (Coronavirus Disease 2019) (ED) Additional Instructions: Your rapid COVID test was positive today. The following updated recommendations have been made by the CDC and local Health Departments, regarding COVID-19: - When people get sick with a respiratory virus, they stay home and away from others. - Return to normal activities when, for at least 24 hours, symptoms are improving overall, and if a fever was present, it has been gone without use of a fever-reducing medication. - Once people resume normal activities, they are encouraged to take additional prevention strategies for the next 5 days to curb disease spread, such as taking more steps for high pressure cleaner air, enhancing hygiene practices, wearing a well-fitting mask, keeping a distance from others, and/or getting tested for respiratory viruses. - Enhanced precautions are especially important to protect those most at risk for severe illness, including those over 65 and people with weakened immune systems. Rest, stay hydrated. Tylenol and ibuprofen every 8 hours as needed Flonase/nasal spray, Zyrtec, cough syrup cold/flu medications for symptoms as needed Follow up with your primary care provider, call to schedule an appointment. Go to the ER for worsening symptoms or concerns. Patient Language: Citizen Of [place] Prescriptions: No Action venlafaxine [Effexor XR] 150 mg Capsule,Extended Release 24hr 300 mg PO DAILY lamotrigine 100 mg tablet 100 mg PO BID hydroxyzine HCl 50 mg tablet 50 mg PO BID PRN (Reason: anxiety) clonazepam [Klonopin] 0.5 mg tablet 0.5 mg PO TID PRN (Reason: anxiety) Qty: 10 0RF cetirizine [Zyrtec] 10 mg tablet 10 mg PO DAILY PRN (Reason: allergy symptoms) Follow-up/Referrals: Milagro Jackson APRN [Primary Care Provider, Family Practice] Time of Disposition: 12:24
[2025-05-24 12:30] LABS: EDSTREPNEGPOS1 Negative (Negative)
[2025-05-24 12:30] LABS: EDCOVIDSCREEN Positive (Negative); EDINFLUASCREEN Negative (Negative); EDINFLUBSCREEN Negative (Negative)
== END 2025-05-24 12:42 | disposition home or self-care (01) ==
PROVIDERS: Emergency Provider Nurse Practitioner Family; PCP Nurse Practitioner Adult Health
DX: U07.1 COVID-19 (principal); F41.9 Anxiety disorder, unspecified
CPT/HCPCS: 87081; 87426; 87804; 87880; 99213; G0463

== ENCOUNTER 2025-06-09 01:31 | Day surgery (SDC) | payer MEDICARE, MEDICAID, SELFPAY ==
--- OUTSIDE RECORDS SUMMARY | 2013-06-27 04:15 | XMS_ITS | Continuity of Care Document ---
Author Organization [facility] Address [address] [place] [address] Phone Care Team Providers Care Aircraft Mechanic Armament Name Role Phone Stephan Carrera MD Unavailable [...] - Active Procedures Procedure Date OFFICE/OUTPATIENT VISIT [facility] Advance Directives Directive Yes / No Effective [...] Providers Copied on Encounter OFFICE/OUTPA TIENT VISIT [facility], [address], [place], [address], [place] tel:[phone] [facility] Degeneration of lumbar or lumbosacral intervertebrDi splacement of lumbar intervertebral discLumbagoSci atica 0-201 3 Debi Rothman. [address] [facility], [place], [place], [id number] . tel: [phone] Specialist: Jordan Black, [address], [place], [address]. tel:[phone] ring Provider: Mahesh Mejía, [address], [place], [address]. tel:[phone] Family History Family Member Type Diagnosis Age At Onset No Information Payers Payer name Insurance type Covered alliance party ID Authoriza tion(s) No Information Social History [...]
--- OUTSIDE RECORDS SUMMARY | 2024-09-19 10:45 | XMS_ITS ---
Author Organization [facility] Address [address] [place] [address] Care Team Providers Care Concrete Pipe Maker Name Role Phone Milagro Jackson APRN Primary Care Provider Mookie Almaguer Unavailable [phone] Social History Sex Assigned At : Social History Observation Description Sex Assigned At Female Encounters Encounter Location Date Provider Diagnosis [facility] [address] [place] [address] 09/19/2024 Mookie Sue Plan Of Treatment Next Appt Details Provider Name:Mookie cazares, 06/19/2025 02:45:00 PM, [address], [address], [place], [address], Progress Notes * LIZZ MARTIN ADOB:[birth year] (60 yo F)Acc No.[id number]:09/19/2024 Patient: Genoveva DOWELLLIZZ Provider: RADHA JOHNSON :1965 A ge:59 Y S ex:Female Date:09/19/2024 Address:[address] , [facility] Pcp:Milagro Jackson APRN Billing Information: * Procedure Codes: * Electronic signature of RADHA Hahn on 06/09/2025 at 01:34 AM CDT Sign off status: Pending * Provider: RADHA JOHNSON Date: 0 09/19/2024 Generated for Charito jesus/Ssuie/Martyitting on: 0 06/09/2025 01:34 AM CDT
[2025-05-30 12:13] VITALS: BMI 25.7
--- NOTE | 2025-05-30 12:14 | PC.NURSE ---
Report to the Outpatient Waiting Room, entrance under the green pavilion located off [facility], at time _0930_ on date _[id number]_. Planned Procedure Time: _1130_.? Time changes happen often and if your time is changed the preop area will call you the afternoon before. - You and your visitor will be asked to self-screen and do not enter if you have any COVID symptoms. Please call surgeon if you need to reschedule. - A mask is optional within the hospital at this time. - No food or drink from midnight until time of surgery and no smoking, or chewing tobacco (or any form of nicotine). No chewing gum, candy or mints. Take only the following medications with a SIP of water on the morning of surgery: ___Venlafaxine, Lamotrigine and if needed may use Clonazepam and or Hydroxyzine.__ DO NOT STOP ANY OF YOUR OTHER PRESCRIPTION MEDICATIONS PRIOR TO SURGERY EXCEPT THE FOLLOWING Hold all vitamins and supplements for 3 days per anesthesiologist. Medications to discontinue per physician Date to take last dose Please no make-up, nail albanian, hairspray, perfume, deodorant, or body powder the day of surgery.? No jewelry (including any body piercings) or valuables the day of surgery, leave them at home.? Please take a shower or bath the night before, or the morning of, surgery with an antibacterial soap.? Wear comfortable, loose fitting clothing.? - Jewelry must be removed prior to entering the operating room.? Rings and piercings that are not removed may be cut off. - The hospital will not accept responsibility for valuables.? - Please leave all valuables, including medications, at home the day of surgery. If you are going home after surgery, a licensed transit mixer driver must drive you home.? - NO public transportation without another adult if you receive anesthesia. - We recommend that an adult stay with you for 24 hours following discharge. - We also recommend that you do not drive, make important decision, drink alcoholic beverages, or take any drugs that were not prescribed by your health care provider for at least 24 hours after your discharge time. Follow any additional instructions given to you from your surgeon. Telephone instructions given to __Carol___and asked if any additional questions and then verbalized understanding. Patient advised to call surgeon office or pre surgery nurse liaison [phone] if any additional questions.
[2025-06-09] VITALS (11 sets, daily range): BP systolic 104–142; BP diastolic 59–85; PULSE 81–96; RESP 14–19; TEMP 36.4–36.6; O2SAT 93–100; BMI 25.3
--- OUTSIDE RECORDS SUMMARY | 2025-06-09 01:34 | XMS_ITS | Clinical Summary ---
Author Organization [facility] Address [facility] [place] [address] Care Team Providers Care Awning Hanger Name Role Phone Unavailable Primary Care Provider [...] 2) 2017 COVID-19 Vaccine (2023-2 5 season) 2025 Meningococcal B Vaccine Aged Out No l onger eligible based on patient's age to complete this topic Meningococcal Vaccine Aged Out No brown alexys eligible based on patient's age to complete this topic RSV Immunizations Under 20 Months Aged Out No longer eligible based on patient's age to complete this topic
--- OUTSIDE RECORDS SUMMARY | 2025-06-09 01:34 | XMS_ITS | Clinical Summary ---
Author Organization [facility] Address [address] [place] [id number] Phone Care Team Providers Care Sports Marketing Specialist Name Role Phone Unavailable Primary Care Provider [...]
--- OUTSIDE RECORDS SUMMARY | 2025-06-09 01:35 | XMS_ITS | Patient Health Record ---
Author Organization [facility] [employer] Address [address] [place] [address] Care Team Providers Care Rail Doweling Machine Operator Name Role Phone Milagro Jackson APRN Primary Care Provider Mookie Almaguer Unavailable [phone] Allergies Allergen (clinical drug ingredient) Drug/Non Drug [...] Risk Notes Problem Moderate recurrent major depression (14913098) Major depressive disorder, recurrent, moderate (F33.1) Active confirmed Problem Generalized anxiety disorder (40125455) Generalized anxiety disorder (F41.1) Active confirmed Problem Insomnia disorder related to another mental disorder (73565131) Insomnia due to other mental disorder (F51.05) Active confirmed Problem Mild recurrent major depression (24458910) Major depressive disorder, recurrent episode, mild (F33.0) Active confirmed Vital Signs Heart Rate 101 /min 03/25/2025 Height-cm 182.88 cm 03/25/2025 Blood pressure diastolic 77 mm Hg 03/25/2025 Weight-kg 91.17 kg 03/25/2025 Height 72.00 in 03/25/2025 Blood pressure systolic 140 mm Hg 03/25/2025 Weight 201 lbs 03/25/2025 BMI 27.26 kg/m2 03/25/2025 Encounters Encounter Location Date Provider Diagnosis [facility] [employer] [place] [id number] [facility] [address] [place] [address] 11/13/2024 Mookie Sue [facility] [employer] [place] [address] [facility] [address] [place] [address] 12/24/2024 Mookie Sue Encounter for screen ing for depression Z13.31 ; Encounter for screening for cardiovascular disorders Z13.6 ; Dietary counseling and surveillance Z71.3 ; Major depressive disorder, recurrent episode, mild F33.0 ; Generalized anxiety disorder F41.1 and Insomnia due to other mental disorder F51.05 [facility] [employer] [place] [address] [place] [address] 01/23/2025 Mookie Sue Negative depression screening Z13.31 ; Encounter for screening for cardiovascular disorders Z13.6 ; Encounter for screening for depression Z13.31 ; Dietary counseling and surveillance Z71.3 ; Major depressive disorder, recurrent episode, mild F33.0 ; Generalized anxiety disorder F41.1 and Insomnia due to other mental disorder F51.05 [facility] [employer] [place] [address] [place] [address] 03/25/2025 Mookie Sue Major depressive disorder, recurrent episode, mild F33.0 ; Generalized anxiety disorder F41.1 and Insomnia due to other mental disorder F51.05 [facility], [facility] [address] [place] [address] 06/11/2024 Mookie Sue Major depressive disorder, recurrent, moderate F33.1 [facility], [facility] [address] [place] [address] 09/16/2024 Mookie Sue [facility], [facility] [address] [place] [address] 11/04/2024 Mookie Sue [facility], [facility] [address] [place] [address] 03/03/2025 Mookie Sue Major depressive disorder, recurrent episode, mild F33.0 and Generalized anxiety disorder F41.1 [facility], [facility] [address] [place] [address] 04/01/2025 Mookie Sue Generalized anxiety disorder F41.1 [facility], [facility] [address] [place] [address] 07/19/2024 Mookie Sue Major depressive disorder, recurrent episode, mild F33.0 [facility], [facility] [address] [place] [address] 07/19/2024 Mookie Sue Generalized anxiety disorder F41.1 [facility], [facility] [address] [place] [address] 08/21/2024 Mookie Sue Generalized anxiety disorder F41.1 [facility], [facility] [address] [place] [address] 09/02/2024 Mookie Sue Major depressive disorder, recurrent episode, mild F33.0 [facility], [facility] [address] [place] [address] 09/29/2024 Mookie Sue Generalized anxiety disorder F41.1 [facility], [facility] [address] [place] [address] 10/29/2024 Mookie Sue Generalized anxiety disorder F41.1 [facility], [facility] [address] [place] [address] 11/25/2024 Mookie Sue Generalized anxiety disorder F41.1 [facility] [employer] [facility] [address] [place] [address] 12/31/2024 Mookie Muhammada [facility] [address] [place] [address] 12/31/2024 Mookie Sue Generalized anxiety disorder F41.1 [facility] [address] [place] [address] 01/28/2025 Mookie Sue Generalized anxiety disorder F41.1 [facility] [address] [place] [address] 05/05/2025 Mookie Sue Generalized anxiety disorder F41.1 [...] prn usewill try to taper off lamotrigine 01/28/2025 Generalized anxiety disorder (ICD-10 - F41.1) 12/31/2024 Generalized anxiety disorder (ICD-10 - F41.1) 12/24/2024 Encounter for screening for depression (ICD-10 - Z13.31) 11/25/2024 Generalized anxiety disorder (ICD-10 - F41.1) 10/29/2024 Generalized anxiety disorder (ICD-10 - F41.1) 09/29/2024 Generalized anxiety disorder (ICD-10 - F41.1) 09/02/2024 Major depressive disorder, recurrent episode, mild (ICD-10 - F33.0) 08/21/2024 Generalized anxiety disorder (ICD-10 - F41.1) 07/19/2024 Generalized anxiety disorder (ICD-10 - F41.1) 07/19/2024 Major depressive disorder, recurrent episode, mild (ICD-10 - F33.0) 03/03/2025 Major depressive disorder, recurrent episode, mild (ICD-10 - F33.0) 01/23/2025 Negative depression screening (ICD-10 - Z13.31) 01/23/2025 Encounter for screening for cardiovascular disorders (ICD-10 - Z13.6) 03/03/2025 Generalized anxiety disorder (ICD-10 - F41.1) 06/11/2024 Major depressive disorder, recurrent, moderate (ICD-10 - F33.1) Electronic Prior Authorization was requested for Caplyta 10.5 MG Capsule. Provider can order medication once approval received. 12/24/2024 Encounter for screening for cardiovascular disorders (ICD-10 - Z13.6) 03/25/2025 Generalized anxiety disorder (ICD-10 - F41.1) clonazepam 1.25mg daily total dose hydroxyzine 50mg qid prn 03/25/2025 Insomnia due to other mental disorder (ICD-10 - F51.05) 12/24/2024 Dietary counseling and surveillance (ICD-10 - Z71.3) 01/23/2025 Encounter for screening for depression (ICD-10 - Z13.31) 01/23/2025 Dietary counseling and surveillance (ICD-10 - Z71.3) 12/24/2024 Major depressive disorder, recurrent episode, mild (ICD-10 - F33.0) cont venlafaxine er 150mg daily, lamotrigine She has been on Clonazepam for multiple years- states she doesn't remember not being on itdiscussed will plan to decrease clonazepam to most tolerable dose, ideally prn usewill try to taper off lamotrigine 12/24/2024 Generalized anxiety disorder (ICD-10 - F41.1) [...] usewill try to taper off lamotrigine 01/23/2025 Generalized anxiety disorder (ICD-10 - F41.1) clonazepam 1.25mg daily total dose hydroxyzine 50mg qid prn 12/24/2024 Insomnia due to other mental disorder (ICD-10 - F51.05) 01/23/2025 Insomnia due to other mental disorder [...] 214 pounds. She has consulted with a cooker cleaner who provided information about GLP-1 receptor agonists (Mounjaro or Ozempic) for weight loss. Patient's sisters have suggested seeing an lock corner machine operator to check cortisol levels. Plan: - Discussed [...] have been made to correct them. 01/23/2025 Other Summer Chance, a patient with a [...] still has limitations with larger stores like [employer]. A referral to pain management has been [...] felt unbalanced during a walk, which her school guidance counselor attributed to possible missed medication. However, the [...] UDT 03/26/2024 Next Appt Details Provider Name:Mookie cazares, 06/19/2025 02:45:00 PM, [address], [facility] [address], [place], [address], Insurance Providers Payer Name Payer Address Payer Phone Subscriber Number Group Number Insured Name Patient Relationship to Insured Coverage Start Date Coverage End Date [facility] Medicare Replacement/ Advantage - Ppo [address] [address] [place] [address] [id number] SUMMER CH[employer] Self - patient is the insured [place] Medicaid [address] [address] [place] [address] [id number] SUMMER [employer] Self - patient is the insured Medical (General) History Medical History History ICD Code Problems: Generalized anxiety disorder Insomnia disorder related to another men laura disorder Mild recurrent major depression Moderate recurrent major depression Panic disorder , Surgical History Surgery Date(Month/Year) Any surgical history Reconstructive surgery 01/03/2011 Hysterectomy (55683) 03/20/2011 Other 03/20/2011 Sinus surgery 03/20/2021 Appendectomy (13654) 05/25/1989
[2025-06-09] MEDS: ACETAMINOPHEN 500 MG TABLET 1000 MG PO (10:05)
--- NOTE | 2025-06-09 10:22 | WPDANESEPPF ---
Anes - Initial Pre Proc Eval Procedure: Operation Date: 06/09/25 11:30 Proposed Procedures p Excisional Hemorrhoidectomy, Possible Banding - Tin Fernández MD Date/Time: 06/09/25 10:22 Surgeon: Tin Fernández MD Pre Op Diagnosis: Bleeding Internal & External Hemorrhoids Patient Data Age: 60 Gender: F Height: 1.83 m Weight: 85.9 kg Allergies Allergy/AdvReac Type Severity Reaction Status Date / Time Sulfa (Sulfonamide Allergy Mild Hives Verified 06/09/25 09:50 Antibiotics) paroxetine (From Paxil) Allergy Diarrhea Verified 06/09/25 09:50 ziprasidone (From Geodon) Allergy Hypertensio Verified 06/09/25 09:50 n Home Medications ?Medication ?Instructions ?Recorded ?Confirmed ?Type venlafaxine 150 mg 300 mg PO DAILY 11/26/19 06/09/25 History capsule,extended release 24 hr (Effexor XR) clonazepam 0.5 mg tablet (Klonopin) 0.5 mg PO TID PRN anxiety #10 tabs 10/17/23 06/09/25 Rx hydroxyzine HCl 50 mg tablet 50 mg PO BID PRN anxiety 11/23/23 05/30/25 History lamotrigine 100 mg tablet 100 mg PO BID 11/23/23 06/09/25 History cetirizine 10 mg tablet (Zyrtec) 10 mg PO DAILY PRN allergy symptoms 05/02/25 05/30/25 History Patient hx anesthesia problems: none Family hx anesthesia problems: none Results Review: All pre-operative results and documents have been reviewed as part of the pre-operative evaluation. [facility] Past Medical History Medical History Right elbow tendonitis Right elbow pain Hives Headache Anxiety Surgical History Surgical History Hx of appendectomy with some intestines removed at same time H/O neck surgery History of back surgery H/O: hysterectomy Family History Family History Father Diabetes mellitus Hypertension Cerebrovascular accident Mother Hypertension Thyroid disorder Sibling Depression Thyroid disorder Carcinoma of colon Unknown Depression Sibling Cancer Social History Social History Smoking status: Never smoker Alcohol intake: never Substance use: never Substance use type: prescription drug Do You Feel Safe in your Home?: Yes Lack of Transportation: No Lack of Food: Never True Current Housing: I Have Housing Concerned About Future Housing: No Difficulty Paying Gas/Electric Bills: No Difficulty Paying for Meds: No Currently Unemployed: No Education: Bachelor's Degree Difficulty w/ Childcare or Family Care: No Living arrangements: with family Occupation/Education: unemployed Gender identity (if verbalized by the patient): Female Sexual Orientation (if Verbalized by the Patient): Straight or Heterosexual Spiritual care concerns: No Agree to blood products: Yes Anes - Eval Final PreProcedure Day of Procedure 06/09/25 10:22 Patient weight: normal Heart: regular rate and rhythm Lungs: clear to auscultation Airway: Mallampati scale class II Neurological: alert and oriented Last oral intake: >/= 8 hours ASA classification: II Emergent: no Anesthetic plan: proceed Anesthesia type and monitoring: general GIVS and standard monitoring Results Review: All pre-operative results and documents have been reviewed as part of the pre-operative evaluation. Informed Consent: The patient's anesthetic plan and its attendant risks and benefits were discussed with the patient/family/POA. Questions were solicited and answers provided to the satisfaction of the patient/family/POA.
--- NOTE | 2025-06-09 10:33 | WPDHPUPDATE1 ---
History and Physical Update Update Date/Time: 06/09/25 10:33 History and Physical has been reviewed, including an updated exam of the patient. There are NO changes in the patient's condition. Risks, benefits, and alternatives have been discussed and questions answered. Patient agrees to proceed with procedure.
[2025-06-09] MEDS: LACTATED RINGERS 1,000 ML 30 ML IV CONT ×2 (10:35→12:36)
[2025-06-09] MEDS: KETOROLAC 15 MG/ML VIAL (*BKC) IV PUSH ×2 (10:37→12:24)
[2025-06-09] MEDS: ceFAZolin 2 GM in SODIUM CHLORIDE 0.9% IV 50 ML 100 ML IVPB (10:52)
--- NOTE | 2025-06-09 11:36 | S_PTH ---
PATIENT: Summer Chance LOC: [facility] U#:[id number] AGE/SX: 60/F ROOM: RE06/09/[address]: Tin Fernández MD : 1965 BED: DIS: 06/09/2025 SPEC #: [id number] RECD: 06/09/25 13:15 STATUS: DARYL CHO #: [id number] TIM: 06/09/25 11:[address]: Tin Fernández DEPT: [facility] Surgical RECD BY: Aaliyah Morgan ENTERED: 06/09/25 13:16 SP TYPE: Surgical OTHR DR: Milagro Jackson APRN Tissues: A - Hemorroid B - Hemorroid C - Hemorroid D - Hemorroid Procedures: Hematoxylin and Eosin Stain Gross and Microscopic Level 3
[2025-06-09] MEDS: LIDO 1%/EPINEPHRINE 1:100,000 20 ML VIAL 30 ML INFILTRATE (11:37)
[2025-06-09] MEDS: LIDOCAINE 2% GEL UROJET 10 ML PKG MUCOUS MEM (12:12)
--- NOTE | 2025-06-09 15:34 | W.PM.PROC2 ---
Procedure Note - Detailed Date of Procedure 06/09/25 Pre-op Diagnosis Bleeding Internal hemorrhoids. Post-op Diagnosis Same Procedure Performed Excisional hemorrhoidectomy x4 Surgeon Tin Fernández MD Retail Sales Representative [employer] Anesthesia General Indications Patient is a 52-year-old female who presented with complaints of fairly frequent bleeding from her hemorrhoids enough so that she has blood through her underwear and pants on multiple occasions. She is now free to go outside in public because of the unpredictability of her bleeding and the fact that she can easily bleed through her clothes. She presents now for an excisional hemorrhoidectomy for these large prolapsing internal hemorrhoids which are bleeding. Findings Patient had 3 large internal hemorrhoids located 12 o'clock, 6 o'clock and 9 o'clock positions with the patient prone. She had a smaller internal hemorrhoid at the 3 o'clock position. No other anal canal masses or lesions. Description of Procedure After informed consent was obtained patient brought to the operating room she was placed under general endotracheal anesthesia on the gurney and then turned onto the prone devin-knife position on the operating table. Care was taken make sure all the pressure points well padded. The buttocks were then taped apart to expose the perianal region. The area was then prepped and draped usual sterile fashion. A time-out was then performed correctly identifying the patient as well as procedure to be performed. She was given perioperative IV antibiotics. I 1st started by performing gentle dilation of the anal sphincters utilizing a lubricated anal speculum. There is no evidence of any masses or lesions within the anal canal or distal rectum. I could see 3 large nonthrombosed internal hemorrhoids located at the 12 o'clock, 6 o'clock, 9 o'clock and 3 o'clock positions. I decided to perform excisional hemorrhoidectomy on all 4 these hemorrhoids. I 1st started with the hemorrhoid at the 6 o'clock position anteriorly with the patient prone. A 2-0 chromic suture was placed at the apex of the hemorrhoid. The tissue on either side of the hemorrhoid was incised with a scalpel in a michael configuration all the way out to the perianal skin. Electrocautery was then used to very carefully dissect in the proper plane superficial to the internal sphincter muscle fibers to excise away the perianal skin and hemorrhoid tissue. This was done for all for the hemorrhoids and each of the hemorrhoids was sent separately to pathology for examination. All the 4 incisions were then closed by running the 2-0 chromic suture in a locking fashion all the way out to the perianal skin. I then transitioned to utilizing 3-0 Vicryl suture in the perianal skin and closing the remaining part of the suture in a running locking fashion. Once this was done I then placed the anal speculum into the anal canal and performed a circumferential evaluation once more. There was no significant stenosis of the anal canal. Hemostasis was good all the suture lines. I then injected 1% lidocaine mixed with 0.5% Marcaine with some epinephrine in the perianal skin for perianal block. I then administered bilateral pudendal nerve blocks as well. I then used a piece of Gelfoam which was then covered with viscous lidocaine and placed into the anal canal. There was then cleaned and sterile dressing was applied. The patient tolerated the procedure well no complications. All sponges, needles, and instrument counts were correct at the end procedure. EBL was _25__cc. The patient was awakened and taken to recovery in stable and satisfactory condition. Implants None Estimated Blood Loss 25 Drains No Packing Yes (Gelfoam packing anal canal) Pathology Yes (Internal hemorrhoids x4) Complications No immediate complications Condition Stable Disposition PACU [facility] Billing Surgery - Charge Forward: Surgery Billing
== END 2025-06-09 15:05 | disposition home or self-care (01) ==
PROVIDERS: PCP Nurse Practitioner Adult Health; Visit Provider Surgery
PROC: (CPT 46260; principal; 2025-06-09 11:30)
DX: K64.8 Other hemorrhoids (principal)
CPT/HCPCS: 46260; 88304; J0690; A9270; J1100; J1885; J2003; J2004; J2250; J2405; J2704; J3010; J7120

== ENCOUNTER 2025-06-19 15:49 | Inpatient (IN) | payer MEDICARE, MEDICAID, SELFPAY ==
--- OUTSIDE RECORDS SUMMARY | 2025-06-19 15:42 | XMS_ITS | Clinical Summary ---
Author Organization [facility] Address [address] [place] [address] Phone Care Team Providers Care Road Mechanic Name Role Phone Unavailable Primary Care Provider [...]
--- OUTSIDE RECORDS SUMMARY | 2025-06-19 15:42 | XMS_ITS | Clinical Summary ---
Author Organization [facility] [place] Address [address] [place] [address] Care Team Providers Care Jewel Bearing Turner Name Role Phone Dameon Holley MD Primary Care Provider [phone] Jordan Black DC Unavailable [phone] Source Comments [facility],non-owned Affiliates and Associated Physician Practices is amultiple site organization consisting of ambulatory clinics and hospital sitesin [place], [place], [place] and [place]. This disclosure is being madepursuant to the Care Everywhere program and may not contain all information available regarding this patient. Last updated 18.[facility] [place] Allergies Active Allergy Reactions Criticality Noted Date [...] SCREENING 1965 LIPID TESTING 1965 MAMMOGRAM 1965 MEDICARE AWV 12 MONTHS 1965 HIV SCREENING 1982 HEPATITIS C SCREENING 04/29/1985 DTAP/TDAP/TD VACCINES (1 - Tdap) 1986 HEPATITIS B VACCINE (1 of 3 - 19+ 3-dose series) 1986 PNEUMOCOCCAL VACCINE 50+ (1 of 1 - PCV) 2017 ZOSTER VACCINE (1 of 2) 2017 DEPRESSION SCREENING 09/18/2024 COVID-19 VACCINE (1 - 2023-2 5 season) 2025 INFLUENZA VACCINE (#1) 2025 HIB VACCINE Aged [...] patient's age to complete this topic Insurance MEDICAID - [place] UHC MANAGED MEDICARE ADV SELF PAY NO INSURANCE Member Subscriber Plan / Payer (Ef fective for All Dates) Name:Summer Chance Member ID:Not on file Relation to Subscriber:Not on file Name:SUMMER CHANCE Subscriber ID:Not on file (Home) Address: [address] [place] [address] Payer ID:Not on file Group ID:Not on file Type:Self Pay Address: [place], [place] Care Teams Jewel Bearing Turner Relationship Specialty Start Date End Date Dameon Holley MD [address] [place] [address] PCP - General Family Medicine 07/10/13 Jordan Black DC [address] [place] [address] Chiropractic 07/10/13
--- OUTSIDE RECORDS SUMMARY | 2025-06-19 15:42 | XMS_ITS | Clinical Summary ---
Author Organization [facility] Address [facility] [place] [address] Care Team Providers Care Marina Porter Name Role Phone Unavailable Primary Care Provider [...]
--- NOTE | 2025-06-19 16:09 | ADMGEN ---
This patient, Summer Chance, was admitted to [facility] Room 313-01. Patient/family oriented to hospital policies and general routines including ID bracelet, bed and alarms, visiting hours, pain management, procedures, bathroom and other care routines, personal items, smoking policy, room service/diet, and visiting hours. Information on how to activate the Rapid Response Team has been discussed. Patient/Family are encouraged to report perceived risks to care and to ask questions if they do not understand what they are told or what they should do. Direct admission from surgeon office.
--- NOTE | 2025-06-19 16:20 | PM.IMHP ---
H&P: HPI History of Present Illness Date/Time: 06/19/25 16:20 Chief Complaint: rectal pain Narrative: Patient is a 60-year-old female with history of anxiety who presented to our office today for follow-up after excisional hemorrhoidectomy x4 on 06/09/2025. She complains of excruciating rectal pain. Patient states that after the surgery she was doing well. She was taking pain medication throughout week, but then felt like she was constipated. This past Monday, 4 days ago, patient had a bowel movement that she states was all blood. By Monday she states that her bowel movements were more brown. They have been loose diarrhea. Patient also notes some urinary retention right after the surgery and then later incontinence with several episodes of wetting herself. She states that she feels urinary pressure and often feels like she has to urinate, but can not go. She has trouble getting up out of the chair and getting to the bathroom and sitting on the toilet. She feels afraid to use the restroom due to the pain. She sometimes feels lightheaded when she tries to use the restroom. She notes urinary and rectal burning. She however states that this does not feel like a bladder infection. She felt nauseous yesterday and today, but never threw up. Patient is admitted to the hospital today for intractable pain. FORMERLY [facility], [facility] Past Medical History Medical History (Updated 06/19/25 @ 15:17 by Lety Polanco CMA) Right elbow tendonitis Right elbow pain Hives Headache Anxiety Surgical History Surgical History (Updated 06/19/25 @ 15:17 by Lety Polanco CMA) Hx of hemorrhoidectomy exc hemorroidectomy poss banding 06/09 Dr Tin Fernández Hx of appendectomy with some intestines removed at same time H/O neck surgery History of back surgery H/O: hysterectomy Family History Family History Father Diabetes mellitus Hypertension Cerebrovascular accident Mother Hypertension Thyroid disorder Sibling Depression Thyroid disorder Carcinoma of colon Unknown Depression Sibling Cancer Social History Social History Smoking status: Never smoker Second hand tobacco smoke exposure: No Alcohol intake: unknown Substance use: never Substance use type: does not use Do You Feel Safe in your Home?: Yes Lack of Transportation: No Lack of Food: Never True Current Housing: I Have Housing Concerned About Future Housing: No Difficulty Paying Gas/Electric Bills: No Difficulty Paying for Meds: No Currently Unemployed: No Education: High School Diploma/GED Difficulty w/ Childcare or Family Care: No Living arrangements: with family Occupation/Education: unemployed Gender identity (if verbalized by the patient): Female Sexual Orientation (if Verbalized by the Patient): Straight or Heterosexual Spiritual care concerns: No Agree to blood products: Yes Meds Home Medications and Allergies Home Medications ?Medication ?Instructions ?Recorded ?Confirmed ?Type venlafaxine 150 mg 300 mg PO DAILY 11/26/19 06/19/25 History capsule,extended release 24 hr (Effexor XR) clonazepam 0.5 mg tablet (Klonopin) 0.5 mg PO TID PRN anxiety #10 tabs 10/17/23 06/19/25 Rx hydroxyzine HCl 50 mg tablet 50 mg PO BID PRN anxiety 11/23/23 06/19/25 History lamotrigine 100 mg tablet 100 mg PO BID 11/23/23 06/19/25 History docusate sodium 100 mg capsule 100 mg PO DAILY #30 caps 06/09/25 06/19/25 Rx (Colace) oxycodone 5 mg tablet 5 mg PO Q6H PRN pain #30 tabs 06/09/25 06/19/25 Rx Allergies Allergy/AdvReac Type Severity Reaction Status Date / Time Sulfa (Sulfonamide Allergy Mild Hives Verified 06/19/25 15:52 Antibiotics) ziprasidone (From Geodon) Allergy Hypertension,hypersenstive Verified 06/19/25 15:52 to skin, felt like something cral paroxetine (From Paxil) AdvReac Diarrhea Verified 06/19/25 15:52 Exam Const: General: no acute distress Eyes: General: appearance normal, both eyes and all related structures Neck: Neck: supple and no JVD Resp: Effort & Inspection: normal respiratory effort Cardio: Rate: regular rate GI: Other: Rectal exam: Sutures intact, no active bleeding, mild swelling to area as anticipated Assessment and Plan Assessment and plan (1) Intractable pain: Code(s): R52 - Pain, unspecified Status: Acute Assessment and Plan: Patient presented to our office today for follow-up 10 days status post hemorrhoidectomy with Dr. Fernández. She notes intractable rectal pain. She was originally taking pain medication immediately after the surgery, but became very constipated. When she did have a bowel movement, it was all blood. She has since had diarrhea which she describes as being very odorous. She has also had some urinary retention, that has now turned into some urinary incontinence as she has had multiple accidents. She feels afraid to use the restroom due to pain. Sometimes unsure if she will urinate or defecate. Notes burning, but she states this does not feel like a bladder infection. She is admitted for intractable pain, that was unable to be managed with oral medication. IV morphine PRN for pain. Will get morning labs and follow with serial exams. (2) Hx of hemorrhoidectomy: Code(s): Z98.890 - Other specified postprocedural states Status: Acute (3) Anxiety: Code(s): F41.9 - Anxiety disorder, unspecified Status: Acute
[2025-06-19] MEDS: MORPHINE SULFATE (*CRX) 4 MG/ML INJ 2 MG IV PUSH (16:31)
[2025-06-19] MEDS: IBUPROFEN IV 800 MG/200 ML 800 MG/200 ML BAG 400 MG IVPB ×2 (16:33→23:32)
[2025-06-19 17:31] LABS: Hematocrit 39.3 % (37.0-47.0); Hemoglobin 12.8 g/dL (12.0-15.0); Immature Granulocyte Percent A 0.4 % (0-0.5); Immature Platelet Fraction Pct 1.3 % (0.9-11.2); Lymphocytes Absolute Auto 0.93 K/mm3 (0.9-3.2); Mean Corpuscular HGB Conc 32.6 g/dl (32-36); Mean Corpuscular Hemoglobin 28.4 pg (26-34); Mean Corpuscular Volume 87.1 fl (80-100); Nucleated Red Blood Cells Absolute Auto 0.000 K/mm3 (0.0-0.012); Nucleated Red Blood Cells Perc 0.0 % (0.0-0.2); Platelet Count Result 281 k/mm3 (150-375); Red Blood Count 4.51 M/mm3 (4.2-5.4); White Blood Count 7.7 K/mm3 (4.5-10.0)
[2025-06-19 18:06] LABS: Anion Gap 10 mmol/L (4-12); Blood Urea Nitrogen 17 mg/dL (7-17); Calcium 9.2 mg/dL (8.4-10.2); Carbon Dioxide 20 mmol/L (22-30); Chloride 101 mmol/L (98-107); Estimated CRCL calculation 84 ml/min; Estimated Glomerular Filt Rate > 60; Glucose 94 mg/dL (65-110); Potassium 4.3 mmol/L (3.4-5.0); Sodium 131 mmol/L (137-145)
[2025-06-19] MEDS: diazePAM INJ (*CRX) 10 MG/2 ML SYRINGE 5 MG IV PUSH (21:35)
[2025-06-19 22:00] VITALS: BP 136/89; PULSE 103; RESP 18; TEMP 36.2; O2SAT 98
[2025-06-20] MEDS: MORPHINE SULFATE (*CRX) 4 MG/ML INJ IV PUSH ×3 (04:38→17:54)
[2025-06-20] MEDS: Please enter patient height and weight for medication dosing 1 EACH XX (05:58)
[2025-06-20 06:00] VITALS: BP 109/66; PULSE 73; RESP 18; TEMP 36.4; O2SAT 98
[2025-06-20] MEDS: ENOXAPARIN 40 MG/0.4 ML SYRINGE SUB-Q (09:57)
[2025-06-20] MEDS: VENLAFAXINE HCL XR 75 MG CAP.ER.24H 300 MG PO (09:58)
[2025-06-20] MEDS: diazePAM INJ (*CRX) 10 MG/2 ML SYRINGE 5 MG IV PUSH ×2 (09:59→20:22)
[2025-06-20] MEDS: IBUPROFEN IV 800 MG/200 ML 800 MG/200 ML BAG 400 MG IVPB ×3 (10:15→23:11)
[2025-06-20 15:00] VITALS: BP 100/58; PULSE 78; RESP 16; TEMP 36.5; O2SAT 99
--- NOTE | 2025-06-20 15:04 | P.PNGS_ITS ---
Progress Note: A&P Assessment and Plan (1) Intractable pain: Code(s): R52 - Pain, unspecified Status: Acute Assessment and Plan: * IV morphine PRN for pain. Will add topical lidocaine jelly. * Will continue to treat pain and follow with serial exams. Hopefully pain is tolerable by the end of the weekend. (2) Hx of hemorrhoidectomy: Code(s): Z98.890 - Other specified postprocedural states Status: Acute (3) Anxiety: Code(s): F41.9 - Anxiety disorder, unspecified Status: Acute Plan Discussed patient's case and plan of care with Dr. Fernández. Subjective Subjective Date/Time Seen: 06/20/25 15:04 Patient reports: still having pain, bowel movement and afebrile Interval history: Patient is doing fine today. She states that the dilaudid helps with pain, but that it wears off. Her pain is exacerbated by movement. She feels scared to have bowel movements due to the pain it causes. She did however have several bowel movements overnight. No nausea/vomiting or any other new symptoms. Exam Const: General: comfortable and no acute distress GI: Other: Rectal exam: Sutures intact, no active bleeding, mild swelling to area as anticipated. No purulent drainage. Objective Data Vital Signs Vital Signs: Vital Signs - 24 hr 06/19/25 15:49 06/19/25 21:35 06/19/25 22:00 Temperature 97.1 F L Pulse Rate 103 H Respiratory Rate 18 Blood Pressure 136/89 Pulse Oximetry 98 Oxygen Delivery Room Air Room Air 06/20/25 06:00 Temperature 97.6 F Pulse Rate 73 Respiratory Rate 18 Blood Pressure 109/66 Pulse Oximetry 98 Oxygen Delivery Intake/Output Intake/Output: Intake & Output 06/17/25 06/18/25 06/19/25 06/20/25 23:59 23:59 23:59 23:59 Intake Total 440 1320 Output Total 2 Balance 440 1318 Meds/Results Medications: Active Medications Generic Name Dose Route Start Last Admin Trade Name Freq PRN Reason Stop Dose Admin Diazepam 5 mg 06/19/25 21:00 06/20/25 09:59 Diazepam Inj (*Crx) 10 Mg/2 Ml Syringe IV PUSH 5 mg Q12HR EMI Administration Enoxaparin Sodium 40 mg 06/20/25 09:00 06/20/25 09:57 Enoxaparin 40 Mg/0.4 Ml Syringe SUB-Q 40 mg DAILY EMI Administration Ibuprofen 800 mg in 200 mls @ 400 mls/hr 06/19/25 16:00 06/20/25 10:45 Caldolor 800 Mg/200 Ml IVPB Infused Q8H EMI Infusion Lamotrigine 100 mg 06/19/25 17:00 06/20/25 09:58 Lamotrigine 100 Mg Tablet PO 100 mg BID EMI Administration Lidocaine HCl 1 applic 06/20/25 13:56 Lidocaine 2% Jelly 5 Ml Tube TOPICAL TID PRN pain Morphine Sulfate 4 mg 06/19/25 15:57 06/20/25 12:06 Morphine Sulfate (*Crx) 4 Mg/Ml Inj IV PUSH 4 mg Q4H PRN Administration Pain Rated 7-10 Morphine Sulfate 2 mg 06/19/25 16:04 06/19/25 16:31 Morphine Sulfate (*Crx) 4 Mg/Ml Inj IV PUSH 2 mg Q4H PRN Administration Pain Rated 4-6 Venlafaxine HCl 300 mg 06/20/25 09:00 06/20/25 09:58 Venlafaxine Hcl Xr 75 Mg Cap.Er.24h PO 300 mg DAILY EMI Administration Labs Labs: Laboratory Results - last 24 hr 06/19/25 17:16 WBC 7.7 RBC 4.51 Hgb 12.8 Hct 39.3 MCV 87.1 MCH 28.4 MCHC 32.6 RDW 13.6 Plt Count 281 MPV 9.0 Immature Gran % (Auto) 0.4 Neut % (Auto) 79.2 H Lymph % (Auto) 12.1 L [place] % (Auto) 6.2 Eos % (Auto) 1.4 Baso % (Auto) 0.7 Lymph # (Auto) 0.93 [place] # (Auto) 0.5 Eos # (Auto) 0.1 Baso # (Auto) 0.1 Abs Immat Gran (auto) 0.03 Absolute Neuts (auto) 6.1 Absolute Nucleated RBC 0.000 Nucleated RBC % 0.0 % Immature Plt Fraction 1.3 Sodium 131 L Potassium 4.3 Chloride 101 Carbon Dioxide 20 L Anion Gap 10 BUN 17 Creatinine 0.73 Estim Creat Clear Calc 84 Estimated GFR > 60 Glucose 94 Calcium 9.2
[2025-06-20 20:15] VITALS: BP 128/79
[2025-06-20 22:00] VITALS: BP 111/67; PULSE 85; RESP 14; TEMP 36.9; O2SAT 97
[2025-06-21] MEDS: MORPHINE SULFATE (*CRX) 4 MG/ML INJ IV PUSH ×2 (01:35→06:35)
[2025-06-21] MEDS: LIDOCAINE 2% JELLY 5 ML TUBE 1 APPLIC TOPICAL (01:35)
[2025-06-21 06:00] VITALS: BP 122/67; PULSE 73; RESP 14; TEMP 36.6; O2SAT 100
[2025-06-21] MEDS: VENLAFAXINE HCL XR 75 MG CAP.ER.24H 300 MG PO (08:57)
[2025-06-21] MEDS: IBUPROFEN IV 800 MG/200 ML 800 MG/200 ML BAG 400 MG IVPB ×2 (08:57→16:55)
[2025-06-21] MEDS: ENOXAPARIN 40 MG/0.4 ML SYRINGE SUB-Q (08:58)
[2025-06-21] MEDS: diazePAM INJ (*CRX) 10 MG/2 ML SYRINGE 5 MG IV PUSH (08:58)
[2025-06-21 09:08] VITALS: RESP 18; O2SAT 100
--- NOTE | 2025-06-21 10:05 | WPDPN ---
Progress Note: A&P Assessment and Plan (1) Anxiety: Code(s): F41.9 - Anxiety disorder, unspecified Status: Acute Assessment and Plan: Transition to oral Valium mg daily and stop the b.i.d. dosing of IV Valium. (2) Hx of hemorrhoidectomy: Code(s): Z98.890 - Other specified postprocedural states Status: Acute Assessment and Plan: Patient had intractable pain at home managed by doses of oral pain medication. She was admitted to the hospital and has improved with narcotic IV pain medications and IV ibuprofen. Will start transition to oral narcotic pain medications. Will keep her on a daily dose of MiraLax. Continue to see how she we can improve on a good regimen of oral pain medications on a regular basis and daily MiraLax. Hopefully home in next 24 to 48 hours. Subjective Date/time seen: 06/21/25 10:05 Interval history: Patient seems to be a little more comfortable today. Having severe pain with having bowel movements but does seem to have improvement. Having loose bowel movements now. 3 in the last 24hours. She has been getting mostly IV narcotic pain medications and IV ibuprofen. No bleeding from hemorrhoids with the bowel movements. Exam GI: Other: Examination perianal region reveals the sutures to be in place. [id number] swelling post surgically is noted after the hemorrhoidectomies. No thrombosed hemorrhoids. No bleeding. Objective Data Vital Signs Vital Signs: Vital Signs - 24 hr 06/20/25 15:00 06/20/25 20:00 06/20/25 20:15 Temperature 36.5 C Pulse Rate 78 Respiratory Rate 16 Blood Pressure 100/58 L 128/79 Pulse Oximetry 99 Oxygen Delivery Room Air 06/20/25 22:00 06/21/25 06:00 06/21/25 09:08 Temperature 36.9 C 36.6 C Pulse Rate 85 73 Respiratory Rate 14 14 18 Blood Pressure 111/67 122/67 Pulse Oximetry 97 100 100 Oxygen Delivery Room Air Intake/Output Intake/Output: Intake & Output 06/18/25 06/19/25 06/20/25 06/21/25 23:59 23:59 23:59 23:59 Intake Total 440 2200 400 Output Total 2 Balance 440 2198 400 Meds/Results Medications: Active Medications Generic Name Dose Route Start Last Admin Trade Name Freq PRN Reason Stop Dose Admin Acetaminophen 1,000 mg 06/21/25 09:58 Acetaminophen 500 Mg Tablet PO Q6H PRN Mild Pain (1-3) or Fever Hydrocodone Bitart/Acetaminophen 1 tab 06/21/25 09:58 Hydrocodone/Acetaminophen (*Crx) 5-325 Mg Tablet PO Q4H PRN Pain Rated 4-6 Diazepam 10 mg 06/22/25 09:00 Diazepam (*Crx) 10 Mg Tablet PO DAILY [facility] Enoxaparin Sodium 40 mg 06/20/25 09:00 06/21/25 08:58 Enoxaparin 40 Mg/0.4 Ml Syringe SUB-Q 40 mg DAILY EMI Administration Hydromorphone HCl 1 mg 06/21/25 10:00 Hydromorphone Hcl Inj (*Crx) 1 Mg/Ml Syr IV PUSH Q3H PRN Pain Rated 7-10 Ibuprofen 800 mg in 200 mls @ 400 mls/hr 06/19/25 16:00 06/21/25 08:57 Caldolor 800 Mg/200 Ml IVPB 400 mls/hr Q8H EMI Administration Lamotrigine 100 mg 06/19/25 17:00 06/21/25 08:58 Lamotrigine 100 Mg Tablet PO 100 mg BID EMI Administration Lidocaine HCl 1 applic 06/20/25 13:56 06/21/25 01:35 Lidocaine 2% Jelly 5 Ml Tube TOPICAL 1 applic TID PRN Administration pain Oxycodone HCl 7.5 mg 06/21/25 09:58 Oxycodone Hcl (*Crx) 2.5 Mg Tab Ir PO Q6H PRN Pain Rated 7-10 Polyethylene Glycol 17 gm 06/22/25 09:00 Polyethylene Glycol 3350 17 Gm Powd.Pack PO QAM EMI Venlafaxine HCl 300 mg 06/20/25 09:00 06/21/25 08:57 Venlafaxine Hcl Xr 75 Mg Cap.Er.24h PO 300 mg DAILY EMI Administration
[2025-06-21] MEDS: oxyCODONE HCL (*CRX) 2.5 MG TAB IR 7.5 MG PO ×2 (12:27→22:29)
[2025-06-21 14:00] VITALS: BP 109/78; PULSE 103; RESP 18; TEMP 36.4; O2SAT 98
[2025-06-21 20:00] VITALS: PULSE 76; RESP 16; O2SAT 97
[2025-06-21 22:00] VITALS: BP 103/57; PULSE 76; RESP 16; TEMP 36.6; O2SAT 97
[2025-06-22] MEDS: IBUPROFEN IV 800 MG/200 ML 800 MG/200 ML BAG 400 MG IVPB ×2 (00:03→08:15)
[2025-06-22 06:00] VITALS: BP 142/86; PULSE 65; RESP 16; TEMP 36.5; O2SAT 100
[2025-06-22] MEDS: oxyCODONE HCL (*CRX) 2.5 MG TAB IR 7.5 MG PO (06:22)
[2025-06-22] MEDS: diazePAM (*CRX) 5 MG TABLET 10 MG PO (08:15)
[2025-06-22] MEDS: VENLAFAXINE HCL XR 75 MG CAP.ER.24H 300 MG PO (08:16)
[2025-06-22] MEDS: ENOXAPARIN 40 MG/0.4 ML SYRINGE SUB-Q (08:22)
--- NOTE | 2025-06-22 12:28 | WPDPN ---
Progress Note: A&P Assessment and Plan (1) Hx of hemorrhoidectomy: Code(s): Z98.890 - Other specified postprocedural states Status: Acute Assessment and Plan: Intractable pain after 4 quadrant hemorrhoidectomy. She is doing better with pain management now. She has transition to taking oral pain medications and has not needed any IV pain medication today. Will transition to or ibuprofen and stopped IV ibuprofen. Continue Sitz baths after bowel movements and as needed for comfort. Continue oral Valium for now. Plan on hopefully discharge tomorrow on regimen of oral pain medications and daily MiraLax. Subjective Date/time seen: 06/22/25 12:28 Interval history: Patient seems to be improving in terms were pain control. Nurses state that she has been managed with oral pain medication is not needed any p.r.n. IV narcotics today. She has been able to get up and walk to the bathroom herself. Using a Sitz baths after having bowel movements. Tolerating solid food. Exam GI: Other: Perianal sutures in place. Expected mild swelling. No bleeding. Objective Data Vital Signs Vital Signs: Vital Signs - 24 hr 06/21/25 14:00 06/21/25 20:00 06/21/25 22:00 Temperature 36.4 C 36.6 C Pulse Rate 103 H 76 76 Respiratory Rate 18 16 16 Blood Pressure 109/78 103/57 L Pulse Oximetry 98 97 97 Oxygen Delivery Room Air 06/22/25 06:00 06/22/25 08:00 Temperature 36.5 C Pulse Rate 65 Respiratory Rate 16 Blood Pressure 142/86 H Pulse Oximetry 100 Oxygen Delivery Room Air Intake/Output Intake/Output: Intake & Output 06/19/25 06/20/25 06/21/25 06/22/25 23:59 23:59 23:59 23:59 Intake Total 440 2200 3020 1240 Output Total 2 Balance 440 2198 3020 1240 Meds/Results Medications: Active Medications Generic Name Dose Route Start Last Admin Trade Name Freq PRN Reason Stop Dose Admin Acetaminophen 1,000 mg 06/21/25 09:58 Acetaminophen 500 Mg Tablet PO Q6H PRN Mild Pain (1-3) or Fever Hydrocodone Bitart/Acetaminophen 1 tab 06/21/25 09:58 Hydrocodone/Acetaminophen (*Crx) 5-325 Mg Tablet PO Q4H PRN Pain Rated 4-6 Diazepam 10 mg 06/22/25 09:00 06/22/25 08:15 Diazepam (*Crx) 5 Mg Tablet PO 10 mg DAILY EMI Administration Enoxaparin Sodium 40 mg 06/20/25 09:00 06/22/25 08:22 Enoxaparin 40 Mg/0.4 Ml Syringe SUB-Q 40 mg DAILY EMI Administration Hydromorphone HCl 1 mg 06/21/25 10:00 Hydromorphone Hcl Inj (*Crx) 1 Mg/Ml Syr IV PUSH Q3H PRN Pain Rated 7-10 Ibuprofen 800 mg in 200 mls @ 400 mls/hr 06/19/25 16:00 06/22/25 08:45 Caldolor 800 Mg/200 Ml IVPB Infused Q8H EMI Infusion Lamotrigine 100 mg 06/19/25 17:00 06/22/25 08:16 Lamotrigine 100 Mg Tablet PO 100 mg BID EMI Administration Lidocaine HCl 1 applic 06/20/25 13:56 06/21/25 01:35 Lidocaine 2% Jelly 5 Ml Tube TOPICAL 1 applic TID PRN Administration pain Oxycodone HCl 7.5 mg 06/21/25 09:58 06/22/25 06:22 Oxycodone Hcl (*Crx) 2.5 Mg Tab Ir PO 7.5 mg Q6H PRN Administration Pain Rated 7-10 Polyethylene Glycol 17 gm 06/22/25 09:00 06/22/25 08:16 Polyethylene Glycol 3350 17 Gm Powd.Pack PO 17 gm QAM EMI Administration Venlafaxine HCl 300 mg 06/20/25 09:00 06/22/25 08:16 Venlafaxine Hcl Xr 75 Mg Cap.Er.24h PO 300 mg DAILY EMI Administration
[2025-06-22 14:00] VITALS: BP 129/70; PULSE 78; RESP 18; TEMP 35.8; O2SAT 99
[2025-06-22] MEDS: IBUPROFEN 600 MG TABLET PO ×2 (14:38→21:25)
[2025-06-22] MEDS: HYDROcodone/acetaminophen (*CRX) 5-325 MG TABLET 1 TAB PO (17:05)
[2025-06-22 22:00] VITALS: BP 110/70; PULSE 81; RESP 16; TEMP 36.6; O2SAT 100
--- NOTE | 2025-06-23 00:30 | PC.NURSE ---
06/22/25 @4890, discussed with patient benefits of lice treatment, how to use and contact precaution status. I asked when she wound like to have NIx treatment for head lice, she stated, I can do it later on tonjoaquín, agreed upon 2300. Return to patient room 2310 to do treatment, she stated, I would rather not get in the shower here, I need like a kitchen sink. Requested she would rather do treatment next time her scheduled pain medications are due and would rather take one more nap before doing so. Informed next scheduled medication is due 0600 Motrin. Offered PRN pain medication, she declined at this time. Informed patient if she wakes up before 0600, I will assist her at that time.
[2025-06-23] MEDS: PERMETHRIN 1% LIQUID 59 ML BOTTLE 1 APPLIC TOPICAL (01:57)
[2025-06-23] MEDS: IBUPROFEN 600 MG TABLET PO ×2 (05:30→14:37)
[2025-06-23 06:00] VITALS: BP 107/58; PULSE 58; RESP 14; TEMP 36.1; O2SAT 100
[2025-06-23 08:00] VITALS: PULSE 58; RESP 14; O2SAT 100
[2025-06-23] MEDS: diazePAM (*CRX) 5 MG TABLET 10 MG PO (09:13)
[2025-06-23] MEDS: ENOXAPARIN 40 MG/0.4 ML SYRINGE SUB-Q (09:13)
[2025-06-23] MEDS: VENLAFAXINE HCL XR 75 MG CAP.ER.24H 300 MG PO (09:13)
--- NOTE | 2025-06-23 17:02 | P.DS_ITS ---
DS: Admitting Diagnosis Discharge Date 06/23/2025 Admitting Diagnosis intractable pain s/p hemorrhoidectomy DS: Discharge Diagnosis Discharge Diagnosis (1) Hx of hemorrhoidectomy: Code(s): Z98.890 - Other specified postprocedural states Status: Acute (2) Anxiety: Code(s): F41.9 - Anxiety disorder, unspecified Status: Acute (3) Head lice: Code(s): B85.0 - Pediculosis due to Pediculus humanus capitis Status: Acute DS: Summary Hospital Course Reason for hospitalization: Patient is a 60-year-old female with history of anxiety who presented to our office on 06/19 for follow-up after excisional hemorrhoidectomy x4 on 06/09/2025. She complains of excruciating rectal pain. Patient states that after the surgery she was doing well. She was taking pain medication throughout week, but then felt like she was constipated. This past Monday, 4 days ago, patient had a bowel movement that she states was all blood. By Monday she states that her bowel movements were more brown. They have been loose diarrhea. Patient also notes some urinary retention right after the surgery and then later incontinence with several episodes of wetting herself. She states that she feels urinary pressure and often feels like she has to urinate, but can not go. She has trouble getting up out of the chair and getting to the bathroom and sitting on the toilet. She feels afraid to use the restroom due to the pain. She sometimes feels lightheaded when she tries to use the restroom. She notes urinary and rectal burning. She however states that this does not feel like a bladder infection. She felt nauseous yesterday and today, but never threw up. Patient is admitted to the hospital for intractable pain. Hospital Course: Patient was directly admitted from a the office for intractable pain 10 days status post excisional hemorrhoidectomy x4. She was started on IV morphine for pain, as well as scheduled IV ibuprofen. IV Valium for muscle relaxer and high anxiety level. Given a low residual diet. The following day, topical lidocaine jelly was added for pain as needed. Patient still complained of rectal pain exacerbated by movement. She felt scared to have bowel movements due to the pain it caused. She did however have several bowel movements overnight. Baseline labs were drawn on 06/19 and appeared to be stable. Over the weekend, patient was transition to oral narcotic pain medications. She was kept on a daily dose of MiraLax. Overnight, patient was noted to have head lice. She was given permethrin treatment. Today, patient has been able to get up and walk herself to the bathroom. Tolerating solid food without nausea or vomiting. Still complains of pain, but was able to tolerate it with oral narcotic pain medication. Upon examination, no active bleeding or drainage appreciated. Patient instructed to do another permethrin treatment in 9 days. Instructed her on precautions and how to take care of clothing and bedding at home. Patient is surgically stable for discharge. She will follow up with Dr. Fernández in 1 week. Status at Discharge Functional status at discharge: independent ambulation Overall status at discharge: patient is progressing back to baseline Time Spent with Patient Time attestation: Total time spent providing and/or coordinating discharge services: Time spent: Greater than 30 minutes Exam Const: General: comfortable Eyes: General: appearance normal, both eyes and all related structures Neck: Neck: supple Resp: Effort & Inspection: normal respiratory effort Cardio: Rate: regular rate GI: Other: Perianal sutures in place. Expected mild swelling. No bleeding. Discharge Plan Discharge Attending physician on discharge: Tin Fernández Discharging Clinician: Carmen Mijares Patient Disposition: Home Activity: may shower Diet: low fiber Discharge Instructions: Surgery Instructions: * Follow-up with Dr. Fernández in 1 week in our office. We will call with time/date of appointment. * Continue low fiber diet for 1 week or until otherwise instructed by Dr. Fernández. * Prescription medications sent to pharmacy. Please pick these up and take as prescribed. * No driving while taking narcotics. * Continue sitz baths two times a day and after bowel movements. * If you experience increased pain, bleeding, fevers, or any other symptoms please call the office or go to the Emergency department. LICE: * You have a hair treatment sent to the pharmacy, which should be repeated in 9 days. This is called permethrin. You should apply this to your scalp and leave on for 10 minutes. Then rinse with warm water over a sink. * Home care once you are home - bag all of your pillows in a sealed bag for 48 hours. Wash all linens that you came into contact with before coming to the hospital (wash in hot water and dry on high heat). Vacuum any carpet or furniture you were in contact with. * If anyone in your household shares a bed with you, then they should be treated for lice. * Anyone in the household should be checked for lice regardless. * Follow-up with your primary care doctor in 2 weeks for further care and to make sure this is adequately treated. Patient Instructions: Antibiotic Form Patient Language: Turkish Stand Alone Forms: General Discharge Information Follow-up/Referrals: Milagro Jackson APRN [Primary Care Provider, Family Practice] - 2 Weeks Tin Fernández MD [Physician, General Surgery] - Call for Appointment Referral Note: Discharge Medications: New Lice Treatment (permethrin) 1 % liquid 60 ml topical ONCE Qty: 118 0RF Rx Instructions: This is for one treatment to repeat on 07/02/25 if lice are still present. Apply to your scalp and leave on for 10 minutes. Then rinse with warm water. lidocaine HCl 2 % Jelly 1 applic topical TID PRN (Reason: pain) Qty: 30 0RF ibuprofen 600 mg Tablet 600 mg PO Q8HR Qty: 20 0RF polyethylene glycol 3350 [Miralax] 17 gram Powder In Packet 17 g PO QAM Qty: 30 0RF hydrocodone-acetaminophen 5-325 mg tablet 1 tablet PO Q6H PRN (Reason: pain) Qty: 20 0RF naloxone [Narcan] 4 mg/actuation spray,non-aerosol 4 mg intranasal Q2M PRN (Reason: opioid overdose) Qty: 2 0RF Rx Instructions: spray 1 dose into ONE nostril; alternate nostrils w each dose until help arrives Continued venlafaxine [Effexor XR] 150 mg Capsule,Extended Release 24hr 300 mg PO DAILY lamotrigine 100 mg tablet 100 mg PO BID hydroxyzine HCl 50 mg tablet 50 mg PO BID PRN (Reason: anxiety) clonazepam [Klonopin] 0.5 mg tablet 0.5 mg PO TID PRN (Reason: anxiety) Qty: 10 0RF oxycodone 5 mg tablet 5 mg PO Q6H PRN (Reason: pain) Qty: 30 0RF docusate sodium [Colace] 100 mg capsule 100 mg PO DAILY Qty: 30 2RF Date of admission: 06/21/25 12:56 Primary Care Provider: Milagro Jackson Admitting Provider: Tin Fernández Attending physician on admission: Tin Fernández Condition: Improved
== END 2025-06-23 19:02 | disposition home or self-care (01) | DRG 948 ==
PROVIDERS: Admitting Provider Surgery; PCP Nurse Practitioner Adult Health
DX: G89.18 Other acute postprocedural pain (principal); N99.89 Other postprocedural complications and disorders of genitourinary system; R33.8 Other retention of urine; R32 Unspecified urinary incontinence; K59.00 Constipation, unspecified; F41.9 Anxiety disorder, unspecified; B85.0 Pediculosis due to Pediculus humanus capitis; R11.0 Nausea; Z87.19 Personal history of other diseases of the digestive system
CPT/HCPCS: 36415; 80048; 85025; 85055; 96365; 96372; 96375; 96376; A9270; G0378; J1650; J1741; J2270; J3360

== ENCOUNTER 2025-07-29 13:09 | Emergency (ER) | payer MEDICARE, MEDICAID, SELFPAY ==
[2025-07-29 13:19] VITALS: BP 119/84; PULSE 92; RESP 16; TEMP 36.5; O2SAT 100
--- NOTE | 2025-07-29 13:29 | ED.FEMALEGU ---
HPI - Female Genitourinary General Chief complaint: Urogenital-Female Stated complaint: PAIN S/P SURGERY Time Seen by Provider: 07/29/25 13:30 Source: patient and RN notes reviewed Mode of arrival: ambulatory Limitations: no limitations History of Present Illness HPI Narrative: 60-year-old female presents with concern for dysuria, frequency, urgency. Reports she had hemorrhoid surgery in May and has had intermittent symptoms since that time. Reports her symptoms worsen in the last few days. She denies fever, body aches, chills, sweats, nausea, vomiting, abdominal pain, back pain. Reports suprapubic pain MD elicited complaint: UTI Related Data Home Medications ?Medication ?Instructions ?Recorded ?Confirmed ?Last Taken ?Type venlafaxine 150 mg 300 mg PO DAILY 11/26/19 07/29/25 06/19/25 History capsule,extended release 24 hr (Effexor XR) lamotrigine 100 mg tablet 100 mg PO BID 11/23/23 07/29/25 06/19/25 History Allergies Allergy/AdvReac Type Severity Reaction Status Date / Time Sulfa (Sulfonamide Allergy Mild Hives Verified 07/29/25 13:19 Antibiotics) ziprasidone (From Geodon) Allergy Hypertension,hypersenstive Verified 07/29/25 13:19 to skin, felt like something cral paroxetine (From Paxil) AdvReac Diarrhea Verified 07/29/25 13:19 Review of Systems Review of Systems: CONSTITUTIONAL: Denies malaise, chills, sweats, or fever. CARDIOVASCULAR: Denies chest pain, palpitations, or edema. RESPIRATORY: Denies cough or dyspnea. GASTROINTESTINAL: Denies abdominal pain, nausea, vomiting, diarrhea GENITOURINARY: Reports dysuria, frequency, urgency, suprapubic pain. Denies flank pain or hematuria. SKIN: Denies rash or itching. MUSCULOSKELETAL: Denies back pain or myalgia. All systems reviewed & are unremarkable except as noted in HPI and below PMFSH Past Medical History Medical History Right elbow tendonitis Right elbow pain Hives Headache Anxiety Surgical History Surgical History Hx of hemorrhoidectomy exc hemorroidectomy poss banding 06/09 Dr Tin Fernández Hx of appendectomy with some intestines removed at same time H/O neck surgery History of back surgery H/O: hysterectomy Family History Family History Father Diabetes mellitus Hypertension Cerebrovascular accident Mother Hypertension Thyroid disorder Sibling Depression Thyroid disorder Carcinoma of colon Unknown Depression Sibling Cancer Social History Social History Second hand tobacco smoke exposure: No Alcohol intake: unknown Substance use: never Substance use type: does not use Do You Feel Safe in your Home?: Yes Lack of Transportation: No Lack of Food: Never True Current Housing: I Have Housing Concerned About Future Housing: No Difficulty Paying Gas/Electric Bills: No Difficulty Paying for Meds: No Currently Unemployed: No Education: High School Diploma/GED Difficulty w/ Childcare or Family Care: No Living arrangements: with family Occupation/Education: unemployed Gender identity (if verbalized by the patient): Female Sexual Orientation (if Verbalized by the Patient): Straight or Heterosexual Spiritual care concerns: No Agree to blood products: Yes Comments At time of signature, agree with nursing past medical, surgical, social and family history. There is no relevant family history pertinent to the presenting complaint Exam Narrative: GENERAL: Well-appearing, well-nourished, and in no acute distress. HEAD: Normocephalic. EYES: PERRLA, conjunctivae clear. NECK: Supple. No lymphadenopathy CHEST: Clear to auscultation. No respiratory distress. HEART: Regular rate and rhythm. ABDOMEN: Soft, nontender upon palpation, nondistended, no palpable or pulsatile masses, no guarding. No CVA tenderness SKIN: Warm, dry, no rash. NEURO: Alert and oriented x3. PSYCH: Normal mood and affect Course Course Emergency Course: Patient is aware of diagnosis, understands and agrees to treatment plan. Anticipatory guidance given. Patient agrees to follow-up as directed and is aware of reasons to seek care at the emergency department. Portions of this record may have been created with voice recognition software Level of Care: Express Care Visit Vital Signs Vital signs: Vital Signs Temperature 97.7 F 07/29/25 13:19 Pulse Rate 92 07/29/25 13:19 Respiratory Rate 16 07/29/25 13:19 Blood Pressure 119/84 07/29/25 13:19 Pulse Oximetry 100 07/29/25 13:19 Oxygen Delivery Room Air 07/29/25 13:19 Temperature 97.7 F 07/29/25 13:19 Pulse Rate 92 07/29/25 13:19 Respiratory Rate 16 07/29/25 13:19 Blood Pressure 119/84 07/29/25 13:19 Pulse Oximetry 100 07/29/25 13:19 Oxygen Delivery Room Air 07/29/25 13:19 Reviewed. MDM - Female Genitourinary MDM Narrative Medical decision making narrative: Exam findings and UA show no acute concerns or changes; patient is non-toxic appearing and is in no distress. Patient is appropriate for outpatient treatment and follow-up. Differential Diagnosis Differential diagnosis: Likely urinary tract infection and cystitis Critical Care Time Critical Care Time Critical Care Time: No Discharge Plan Discharge Clinical Impression: Urinary tract infection Patient Disposition: Home Condition: Stable Instructions: Antibiotic Form, Urinary Tract Infection in Women (ED) Additional Instructions: We will send a urine culture to the lab; if the culture identifies an organism that the prescribed antibiotic will not treat, you will receive a phone call from an urgent care staff member and an appropriate antibiotic will be prescribed. -Your symptoms should begin to improve within a day of starting antibiotics. But you should finish all the antibiotic pills you get. Otherwise your infection might come back. -Also recommend: increase water intake. Tylenol/ibuprofen as needed for pain or fever -Follow-up with your primary care provider for urine recheck or seek ER visit if condition worsens with high fever, nausea, vomiting and severe back pain. Patient Language: Telugu Prescriptions: New ciprofloxacin HCl 500 mg tablet 500 mg PO Q12H 5 Days Qty: 10 0RF phenazopyridine [Pyridium] 200 mg tablet 200 mg PO TID PRN (Reason: pain) Qty: 6 0RF No Action venlafaxine [Effexor XR] 150 mg Capsule,Extended Release 24hr 300 mg PO DAILY lamotrigine 100 mg tablet 100 mg PO BID Follow-up/Referrals: Milagro Jackson APRN [Primary Care Provider, [facility]] Time of Disposition: 13:35
[2025-07-29 13:41] LABS: EDUAAPPEAR Cloudy; EDUABILI Negative (Negative); EDUABLOOD 2+ (Negative); EDUACOLOR1 Yellow; EDUAGLUCOSE Negative (Negative); EDUAKETONE Negative (Negative); EDUALEUKO 2+ (Negative); EDUANITRATE Negative (Negative); EDUAPH 6.0; EDUAPROTEIN Negative (Negative); EDUASPGRAVITY 1.010; EDUAUROBILI 0.2
== END 2025-07-29 13:40 | disposition home or self-care (01) ==
PROVIDERS: Emergency Provider Nurse Practitioner; PCP Nurse Practitioner Adult Health
DX: N39.0 Urinary tract infection, site not specified (principal); F41.9 Anxiety disorder, unspecified
CPT/HCPCS: 81003; 87077; 87086; 87186; 99213; G0463

== ENCOUNTER 2025-09-16 14:10 | Emergency (ER) | payer MEDICARE, MEDICAID, SELFPAY ==
[2025-09-16 14:23] VITALS: BP 134/81; PULSE 92; RESP 16; TEMP 36.2; O2SAT 98
[2025-09-16 15:29] LABS: EDCOVIDSCREEN Negative (Negative); EDINFLUASCREEN Negative (Negative); EDINFLUBSCREEN Negative (Negative)
--- NOTE | 2025-09-16 15:36 | ED.URI ---
HPI - URI/Sore Throat General Chief Complaint: Upper Respiratory Infection Stated Complaint: Cold Symptoms Time Seen by Provider: 09/16/25 15:05 Source: patient and RN notes reviewed Mode of arrival: ambulatory Limitations: no limitations History of Present Illness HPI Narrative: 60-year-old female presents Express Care complaining of upper respiratory symptoms for 1 week. Patient reports cough, congestion, mucopurulent nasal drainage, cough sinus pressure is not getting any better. Patient denies any fevers advice, chills, nausea vomiting, diarrhea, chest pain difficulty breathing, or any other symptoms. Patient has been taking [id number] cold and flu medication without relief. Related Data Home Medications ?Medication ?Instructions ?Recorded ?Confirmed ?Last Taken ?Type venlafaxine 150 mg 300 mg PO DAILY 11/26/19 07/29/25 06/19/25 History capsule,extended release 24 hr (Effexor XR) lamotrigine 100 mg tablet 100 mg PO BID 11/23/23 07/29/25 06/19/25 History Allergies Allergy/AdvReac Type Severity Reaction Status Date / Time Sulfa (Sulfonamide Allergy Mild Hives Verified 09/16/25 14:39 Antibiotics) ziprasidone (From Geodon) Allergy Hypertension,hypersenstive Verified 09/16/25 14:39 to skin, felt like something cral paroxetine (From Paxil) AdvReac Diarrhea Verified 09/16/25 14:39 Review of Systems Review of Systems: CONSTITUTIONAL: Denies fever, chills, or sweats. EYES: Denies visual changes, redness, or discharge. ENT: Denies rhinorrhea, sore throat, or otalgia. Positive for congestion and sinus pressure. CARDIOVASCULAR: Denies chest pain, palpitations, or edema. RESPIRATORY: Positive for cough. Negative for wheezing Or dyspnea. GASTROINTESTINAL: Denies abdominal pain, nausea, vomiting, or diarrhea. GENITOURINARY: Denies dysuria or hematuria. SKIN: Denies rash or itching. MUSCULOSKELETAL: Denies back pain, joint pain, or myalgia. NEUROLOGIC: Denies headache, numbness, or weakness. PSYCHIATRIC: Denies anxiety or depression. All other systems reviewed are negative, except as documented in HPI. [facility] Past Medical History Medical History Right elbow tendonitis Right elbow pain Hives Headache Anxiety Surgical History Surgical History Hx of hemorrhoidectomy exc hemorroidectomy poss banding 06/09 Dr Tin Fernández Hx of appendectomy with some intestines removed at same time H/O neck surgery History of back surgery H/O: hysterectomy Family History Family History Father Diabetes mellitus Hypertension Cerebrovascular accident Mother Hypertension Thyroid disorder Sibling Depression Thyroid disorder Carcinoma of colon Unknown Depression Sibling Cancer Social History Social History Smoking status: Never smoker Second hand tobacco smoke exposure: No Alcohol intake: unknown Substance use: never Substance use type: does not use Lack of Transportation: No Lack of Food: Never True Current Housing: I Have Housing Concerned About Future Housing: No Difficulty Paying Gas/Electric Bills: No Difficulty Paying for Meds: No Currently Unemployed: No Education: High School Diploma/GED Difficulty w/ Childcare or Family Care: No Living arrangements: with family Occupation/Education: unemployed Gender identity (if verbalized by the patient): Female Sexual Orientation (if Verbalized by the Patient): Straight or Heterosexual Spiritual care concerns: No Agree to blood products: Yes Comments At the time of my signature, I reviewed and agree with the nursing past medical, surgical, social, and family history. There is no relevant family history pertinent to the patient complaint. Exam Narrative: GENERAL: This is a well-nourished, well-developed adult, in no apparent distress. They are non ill-appearing, nontoxic appearing. HEAD: normocephalic, atraumatic. EYES: Sclera clear/white. Conjunctiva normal. Vision is grossly intact. Extraocular movements intact EARS: External ears normal, auditory canals clear and without drainage, TMs normal without perforation. Hearing grossly intact. NOSE: External nose normal with no obvious nasal discharge, nasal turbinates erythematous no rhinorrhea. THROAT: Mucous membranes moist, posterior pharynx erythematous with PND. Uvula midline. NECK: Neck supple, non-tender without lymphadenopathy, masses or thyromegaly. CARDIOVASCULAR: Regular rate and rhythm without murmurs, gallops, or rubs. RESPIRATORY: Clear to auscultation. Breath sounds equal bilaterally. No wheezes, rales, or rhonchi. SKIN: warm, Dry, intact with no suspicious lesions or rash, good texture and turgor. NEURO: awake, alert, and oriented to person, place and time. There were no obvious focal neurologic abnormalities. EXTREMITIES: No joint tenderness, effusion, or edema noted. BACK: Nontender without deformity. Course Course Level of Care: Express Care Visit Vital Signs Vital signs: Vital Signs Temperature 97.2 F L 09/16/25 14:23 Pulse Rate 92 09/16/25 14:23 Respiratory Rate 16 09/16/25 14:23 Blood Pressure 134/81 09/16/25 14:23 Pulse Oximetry 98 09/16/25 14:23 Temperature 97.2 F L 09/16/25 14:23 Pulse Rate 92 09/16/25 14:23 Respiratory Rate 16 09/16/25 14:23 Blood Pressure 134/81 09/16/25 14:23 Pulse Oximetry 98 09/16/25 14:23 MDM MDM Narrative Medical decision making narrative: COVID and flu were negative. Given length of symptoms patient likely has sinusitis. Will treat with Augmentin. Discussed physical exam findings. Advised supportive measures and signs/symptoms to go to the ER. Pt is appropriate for outpt treatment and f/u. Differential Diagnosis Differential Diagnosis: Differential diagnostic considerations for upper respiratory infection include upper respiratory infection, croup, otitis media, sinusitis, viral infection, bronchitis, influenza, pharyngitis, strep, uvulitis. Lab Data [facility] Lab Attestation statement: I personally reviewed the patient's lab results. Labs: Lab Results 09/16/25 Range/Units 15:28 POC Influenza A Ag Negative (Negative) POC Influenza B Ag Negative (Negative) POC SARS CoV-2 Ag Negative (Negative) Critical Care Time Critical Care Time Critical Care Time: No Discharge Plan Discharge Clinical Impression: Sinusitis Qualifiers: Sinusitis location: unspecified location Chronicity: acute Recurrence: non-recurrent Qualified Code(s): J01.90 - Acute sinusitis, unspecified Patient Disposition: Home Condition: Stable Instructions: Antibiotic Form, Sinusitis (ED) Additional Instructions: Your COVID and flu are negative today. Take the antibiotics as directed and complete the course even if you start to feel better. You may use a Neti pot saline rinse 3 times a day with lukewarm distilled water Continue to take Tylenol or Motrin as needed for pain or fevers. Follow instructions on the bottle. Use a humidifier or vaporizer at night. Drink plenty of water. 8-10 glasses per day. Use flonase 2 times per day for 5 days then as needed Take mucinex 2 times per day and be sure to take with 8oz of water. Follow up with Primary provider in 3-5 days Please go to the ER if he develops any difficulty breathing, chest pains, vomiting, worsening symptoms, or any other concerns Patient Language: Luxembourgish Prescriptions: New amoxicillin-pot clavulanate 875-125 mg tablet 1 tablet PO Q12H 7 Days Qty: 14 0RF No Action venlafaxine [Effexor XR] 150 mg Capsule,Extended Release 24hr 300 mg PO DAILY lamotrigine 100 mg tablet 100 mg PO BID Follow-up/Referrals: Milagro Jackson APRN [Primary Care Provider, [facility]] Time of Disposition: 15:26
== END 2025-09-16 15:32 | disposition home or self-care (01) ==
PROVIDERS: PCP Nurse Practitioner Adult Health
DX: J01.90 Acute sinusitis, unspecified (principal); Z20.822 Contact with and (suspected) exposure to COVID-19; F41.9 Anxiety disorder, unspecified
CPT/HCPCS: 87426; 87804; 99213; G0463